=== PATIENT | female | born 1945 | race Caucasian/White ===

== ENCOUNTER → 2021-07-27 12:10 | Outpatient (BNVA) | payer MEDICARE, OTHER, SELFPAY | PROVIDERS: PCP Family Medicine; Visit Provider Family Medicine | DX: E78.2 Mixed hyperlipidemia (principal); I10 Essential (primary) hypertension; E11.9 Type 2 diabetes mellitus without complications; Z79.4 Long term (current) use of insulin | CPT/HCPCS: 80053; 80061; 82043; 83036; 85025 ==

== ENCOUNTER → 2021-10-30 12:02 | Outpatient (BNVA) | payer MEDICARE, OTHER, SELFPAY | PROVIDERS: PCP Family Medicine; Visit Provider Family Medicine | DX: E11.9 Type 2 diabetes mellitus without complications (principal); Z79.4 Long term (current) use of insulin | CPT/HCPCS: 80053; 83036 ==

== ENCOUNTER → 2022-04-06 14:28 | Outpatient (BNVA) | payer MEDICARE, SELFPAY | PROVIDERS: PCP Family Medicine; Visit Provider Registered Nurse Neonatal Intensive Care | DX: U07.1 COVID-19 (principal) | CPT/HCPCS: 87635 ==

== ENCOUNTER → 2022-04-30 11:59 | Outpatient (BNVA) | payer MEDICARE, SELFPAY | PROVIDERS: PCP Family Medicine; Visit Provider Family Medicine | DX: G47.10 Hypersomnia, unspecified (principal); R53.83 Other fatigue; E78.5 Hyperlipidemia, unspecified; I10 Essential (primary) hypertension; E11.9 Type 2 diabetes mellitus without complications; Z79.4 Long term (current) use of insulin | CPT/HCPCS: 80053; 84443 ==

== ENCOUNTER 2022-05-03 06:00 | Outpatient (RCR) | payer MEDICARE, OTHER, SELFPAY | END 2022-05-13 23:59 | disposition home or self-care (01) | LOC: SPT 06:00 | PROVIDERS: PCP Family Medicine; Referring Provider Family Medicine; Visit Provider Family Medicine | DX: M25.511 Pain in right shoulder (principal); M25.512 Pain in left shoulder | CPT/HCPCS: 97110; 97140; 97162; G0283 ==

== ENCOUNTER → 2022-05-04 08:57 | Outpatient (BNVA) | payer MEDICARE, SELFPAY | PROVIDERS: PCP Family Medicine; Visit Provider Family Medicine | DX: E11.9 Type 2 diabetes mellitus without complications (principal); Z79.4 Long term (current) use of insulin | CPT/HCPCS: 83036 ==

== ENCOUNTER 2022-05-14 06:00 | Outpatient (RCR) | payer MEDICARE, OTHER, SELFPAY | END 2022-06-13 23:59 | disposition home or self-care (01) | LOC: SPT 06:00 | PROVIDERS: PCP Family Medicine; Referring Provider Family Medicine; Visit Provider Family Medicine | DX: M25.511 Pain in right shoulder (principal); M25.512 Pain in left shoulder | CPT/HCPCS: 97110; G0283 ==

== ENCOUNTER 2022-07-09 11:47 | Outpatient (CLI) | payer MEDICARE, OTHER, SELFPAY ==
[2022-07-09 12:37] LABS: Basophils % 0.6 %; Eosinophils # 0.1 10^3/uL (0.0-0.8); Hematocrit 29.6 % (37.0-47.0); Hemoglobin 9.3 g/dL (11.5-15.3); Lymphocytes % 30.8 %; Mean Corpuscular HGB Conc 31.4 g/dL (30.0-36.0); Mean Corpuscular Hemoglobin 30.2 pg (28.0-34.0); Mean Corpuscular Volume 96.1 fl (81-99); Mean Platelet Volume 10.7 fL (7.4-10.4); Monocytes # 0.7 10^3/uL (0.2-0.9); Monocytes % 10.5 %; Neutrophils # 3.65 10^3/uL (1.8-7.7); Neutrophils % 55.6 %; Nucleated Red Blood Cells % 0 %; Platelet Count 353 10^3/cmm (130-400); Red Blood Count 3.08 10^6/uL (4.1-5.3); White Blood Count 6.6 10^3/uL (4.0-10.0)
[2022-07-09 13:13] LABS: Alanine Aminotransferase 16 U/L (0-33); Albumin Level 4.1 g/dL (3.5-5.2); Alkaline Phosphatase 38 U/L (35-105); Anion Gap 13.8 (5-19); Aspartate Amino Transferase 22 U/L (0-32); Blood Urea Nitrogen 25 mg/dL (8-23); Calcium 9.6 mg/dL (8.5-10.5); Carbon Dioxide 25 mmol/L (22-29); Chloride 105 mmol/L (98-107); Globulin 2.4 g/dL (1.3-4.6); Glucose 108 mg/dL (65-115); Osmolality Calculated 293 mOsm/kg (285-295); Potassium 4.8 mmol/L (3.5-5.1); Sodium 139 mmol/L (136-145); Thyroid Stimulating Hormone 1.39 uIU/mL (0.27-4.20); Total Bilirubin 0.3 mg/dL (0.15-1.2); Total Protein 6.5 g/dL (6.6-8.7)
== END 2022-07-09 11:48 | disposition home or self-care (01) ==
LOC: LAB 11:52
PROVIDERS: PCP Family Medicine; Visit Provider Family Medicine
DX: R10.9 Unspecified abdominal pain (principal); R53.83 Other fatigue
CPT/HCPCS: 36415; 80053; 82270; 84443; 85025

== ENCOUNTER → 2022-07-23 13:56 | Outpatient (BNVA) | payer MEDICARE, OTHER, SELFPAY | PROVIDERS: PCP Family Medicine; Visit Provider Surgery | DX: R10.13 Epigastric pain (principal); R10.9 Unspecified abdominal pain; K21.9 Gastro-esophageal reflux disease without esophagitis; D50.9 Iron deficiency anemia, unspecified | CPT/HCPCS: 99203 ==

== ENCOUNTER 2022-09-17 05:49 | Day surgery (SDC) | payer MEDICARE, OTHER, SELFPAY ==
[2022-09-13 14:18] VITALS: BMI 22.1
--- NOTE | 2022-09-17 06:11 | P.HP_ITS ---
Same Day Surgery H&P Indication for Procedure/HPI DATE OF PROCEDURE: September 17, 2022 CHIEF COMPLAINT/INDICATIONFOR SURGICAL PROCEDURE: Abdominal pain PREOP DIAGNOSIS: Abdominal pain PLANNED PROCEDURE: Operation Date: 09/17/22 07:30 Proposed Procedures p EGD 57490 colonoscopy 25984,K21.9,D50.9(Not Applicable) - Denis Lorenz MD s Colonoscopy(Not Applicable) - Denis Lorenz MD 07/23/2022 This is a pleasant 76 years old female patient with history of anemia and epigastric pain particularly postprandial.? describes the pain is being crampy and continues to have burping all the time.? Had a colonoscopy about 10 years ago and never had an upper endoscopy.? She feels sleepy and tired.? Nothing seems to make the pain better or worse.? Patient's pain is not being referred.? Latest hemoglobin 9.3 and hematocrit 29.6. Interim history 09/17/2022 Patient comes today for diagnostic EGD and colonoscopy. ROS All systems have been reviewed negative except as for the above or per problem list. Medications/Allergies* Home Medications Medication Instructions Recorded Confirmed Type aspirin 81 mg tablet,delayed 81 mg PO DAILY 06/27/21 09/13/22 History release diphenhydramine HCl 25 mg tablet 50 mg PO .bedtime PRN eyes drops 06/27/21 09/13/22 History (Allergy Relief (diphenhydramine)) make nose run ketoconazole 2 % shampoo 1 applic topical .weekly PRN dry 06/27/21 09/13/22 History patches lancets 28 gauge (FreeStyle 06/27/21 09/13/22 History Lancets) latanoprost 0.005 % eye drops 1 drp ophthalmic (eye) DAILY 06/27/21 09/13/22 History loratadine 10 mg tablet (Allergy 10 mg PO DAILY 06/27/21 09/13/22 History Relief (loratadine)) multivitamin-iron 9 mg-folic acid 1 tab PO DAILY 06/27/21 09/13/22 History 400 mcg-calcium and minerals tablet (High Potency Multivitamin (w-iron)) omega-3 fatty acids-vitamin E 1 cap PO DAILY 06/27/21 09/13/22 History 1,000 mg capsule tumeric 1 cap PO DAILY 07/27/21 09/13/22 History cholecalciferol (vitamin D3) 25 25 mcg PO DAILY 09/13/22 09/13/22 History mcg (1,000 unit) capsule (Vitamin D3) metoprolol tartrate 25 mg tablet 12.5 mg PO QPM 09/13/22 09/13/22 History omeprazole 40 mg capsule,delayed 40 mg PO DAILY 09/13/22 09/13/22 History release simvastatin 80 mg tablet 80 mg PO QPM 09/13/22 09/13/22 History insulin glargine 100 unit/mL (3 30 unit SUBCUT DAILY 09/17/22 09/17/22 History mL) subcutaneous pen (Lantus Solostar U-100 Insulin) Allergies/Adverse Reactions Allergy/AdvReac Type Severity Reaction Status Date / Time Sulfa (Sulfonamide AdvReac Mild yeast Verified 09/17/22 06:22 Antibiotics) infection Pertinent History/Comorbid Conditions* Medical History (Updated 07/10/22 @ 07:32 by Rena Vu DO) Controlled type 2 diabetes mellitus, with long-term current use of insulin Hyperlipidemia Surgical History (Updated 06/27/21 @ 10:59 by Rena Vu DO) No pertinent past surgical history Social History Smoking and tobacco status: former smoker Second hand smoke exposure: No Alcohol intake: current Alcohol intake frequency: holidays/special occasions only Alcohol type: wine Desire information about alcohol rehabilitation?: No Adopted: No Caregiver/support person: No Lives independently: Yes Household members: spouse and children Housing: House Marital status: Number of children: 3 Number of grandchildren: 4 service: No Current occupational status: retired Pets and animals: Yes Pets & animals: dog(s) and fish History of recent travel: No Current gender identity: Female Pertinent Exam Findings alert, oriented x 3, regular rate & rhythm and procedure specific exam findings (Abdominal exam nontender nondistended soft) Recommendations Surgery/Procedure today (EGD and colonoscopy with possible biopsy) Coding Level of Care Code Acute Phlebotomy Lab Assistant for Loren Mata
[2022-09-17 06:17] VITALS: BP 123/85; PULSE 68; RESP 18; TEMP 36.8; O2SAT 97
[2022-09-17] MEDS: sodium chloride 0.9% 1,000 ML 30 ML IV (06:26)
[2022-09-17 06:30] LABS: Glucose Point of Care 196 mg/dL (70-110)
--- NOTE | 2022-09-17 06:55 | ANES.PREANE2 ---
Pre-Anesthetic Assessment Height/Weight: Height 1.6 m Weight 56.699 kg Temp Pulse Resp BP Pulse Ox O2 Del Method 98.3 F 68 18 123/85 97 09/17/22 06:17 09/17/22 06:17 09/17/22 06:17 09/17/22 06:17 09/17/22 06:17 09/17/22 06:17 Preop Diagnosis: Abdominal pain Operation Date: 09/17/22 07:30 Proposed Procedures p EGD 14284 colonoscopy 96082,K21.9,D50.9(Not Applicable) - Denis Lorenz MD s Colonoscopy(Not Applicable) - Denis Lorenz MD Was Beta Louise taken within 24 hours: N/A Was Clonidine taken within 24 hours: N/A Last intake: Intake Last Liquid Date 09/16/22 Last Liquid Time 22:00 Last Solid Date 09/15/22 Last Solid Time 18:00 Social No alcohol and No tobacco Exam alert, oriented x 3, clear to auscultation bilaterally and regular rate & rhythm Airway Submandibular: within normal limits Cervical ROM: within normal limits Mallampati: Class II Dentition: full History/ROS No significant history except as noted and No significant complaints Pulmonary None reported CV/HEM None reported None reported Hepatic None reported GI None reported Metabolic Diabetes Mellitus Musc/skel None reported Neuropsych None reported Anesthetic Plan ASA status: 2 Anesthesia: Anesthesia Evaluation and MAC Risk of > 500 ml blood loss (7ml/kg in children): No Medications/Allergies Home Medications Medication Instructions Recorded Confirmed Last Taken Type aspirin 81 mg tablet,delayed 81 mg PO DAILY 06/27/21 09/13/22 09/14/22 History release diphenhydramine HCl 25 mg tablet 50 mg PO .bedtime PRN eyes drops 06/27/21 09/13/22 09/15/22 History (Allergy Relief (diphenhydramine)) make nose run ketoconazole 2 % shampoo 1 applic topical .weekly PRN dry 06/27/21 09/13/22 09/13/22 History patches lancets 28 gauge (FreeStyle 06/27/21 09/13/22 09/13/22 History Lancets) latanoprost 0.005 % eye drops 1 drp ophthalmic (eye) DAILY 06/27/21 09/13/22 09/16/22 History loratadine 10 mg tablet (Allergy 10 mg PO DAILY 06/27/21 09/13/22 09/15/22 History Relief (loratadine)) multivitamin-iron 9 mg-folic acid 1 tab PO DAILY 06/27/21 09/13/22 09/15/22 History 400 mcg-calcium and minerals tablet (High Potency Multivitamin (w-iron)) omega-3 fatty acids-vitamin E 1 cap PO DAILY 06/27/21 09/13/22 09/15/22 History 1,000 mg capsule tumeric 1 cap PO DAILY 07/27/21 09/13/22 09/15/22 History fenofibrate 160 mg tablet 160 mg PO DAILY #90 tabs 09/18/21 09/13/22 09/15/22 Rx diabetic shoes #1 ea 10/30/21 09/13/22 09/13/22 Rx pen needle, diabetic 32 gauge x #100 ea 01/03/22 09/13/22 09/13/22 Rx 5/32 (TechLITE Pen Needle) trazodone 50 mg tablet 100 mg PO .at bedtime 90 days #180 01/03/22 09/13/22 09/14/22 Rx tabs diclofenac sodium 3 % topical gel 2 g topical QID #100 grams 02/05/22 09/13/22 09/11/22 Rx dapagliflozin 5 mg tablet (Farxiga) 5 mg PO QAM 90 days #90 tabs 05/21/22 09/13/22 09/15/22 Rx blood sugar diagnostic (FreeStyle #300 ea 07/13/22 09/13/22 09/13/22 Rx Lite Strips) cholecalciferol (vitamin D3) 25 25 mcg PO DAILY 09/13/22 09/13/22 09/15/22 History mcg (1,000 unit) capsule (Vitamin D3) metoprolol tartrate 25 mg tablet 12.5 mg PO QPM 09/13/22 09/13/22 09/16/22 History omeprazole 40 mg capsule,delayed 40 mg PO DAILY 09/13/22 09/13/22 09/15/22 History release simvastatin 80 mg tablet 80 mg PO QPM 09/13/22 09/13/22 09/15/22 History insulin glargine 100 unit/mL (3 30 unit SUBCUT DAILY 09/17/22 09/17/22 09/16/22 09:00 History mL) subcutaneous pen (Lantus Solostar U-100 Insulin) Allergies Allergy/AdvReac Type Severity Reaction Status Date / Time Sulfa (Sulfonamide AdvReac Mild yeast Verified 09/17/22 06:22 Antibiotics) infection Current Medications Generic Name Dose Route Start Last Admin Trade Name Freq PRN Reason Stop Dose Admin Sodium Chloride 1,000 mls @ 30 mls/hr 09/17/22 06:15 09/17/22 06:26 Sodium Chloride 0.9% IV 09/18/22 06:14 30 mls/hr .Q24H BRADEN Administration PFSH Anesthesia Medical History Controlled type 2 diabetes mellitus, with long-term current use of insulin Hyperlipidemia Surgical History No pertinent past surgical history Social History Smoking and tobacco status: former smoker Second hand smoke exposure: No Alcohol intake: current Alcohol intake frequency: holidays/special occasions only Alcohol type: wine Desire information about alcohol rehabilitation?: No Adopted: No Caregiver/support person: No Lives independently: Yes Household members: spouse and children Housing: House Marital status: Number of children: 3 Number of grandchildren: 4 service: No Current occupational status: retired Pets and animals: Yes Pets & animals: dog(s) and fish History of recent travel: No Current gender identity: Female Data Anesthesia Cardiac Studies: No Data to Display
[2022-09-17 08:04] VITALS: BP 93/52; PULSE 66; RESP 20; TEMP 36.3; O2SAT 97
[2022-09-17 08:20] VITALS: BP 100/64; PULSE 66; RESP 18; O2SAT 95
--- NOTE | 2022-09-17 15:33 | ANE.PACU2 ---
Inpatient post-anesthesia follow up: Airway intact: Yes Vital signs: Temperature 97.4 F Pulse Rate 66 Respiratory Rate 18 Blood Pressure 100/64 Pulse Oximetry 95 Oxygen Delivery Me thod Room Air Oxygen Flow Rate 3 Fraction of Inspir ed Oxygen Hydration adequate: Yes Nausea and vomiting: No Pain level: 1 Mental status: Baseline
== END 2022-09-17 08:49 | disposition home or self-care (01) ==
PROVIDERS: PCP Family Medicine; Visit Provider Surgery
PROC: 0DJ08ZZ Inspection of Upper Intestinal Tract, Via Natural or Artificial Opening Endoscopic (ICD-10-PCS; CPT 43235; principal; 2022-09-17 07:30)
PROC: 0DJD8ZZ Inspection of Lower Intestinal Tract, Via Natural or Artificial Opening Endoscopic (ICD-10-PCS; CPT 45378; 2022-09-17 07:30)
DX: R10.9 Unspecified abdominal pain (principal); K21.9 Gastro-esophageal reflux disease without esophagitis; D50.9 Iron deficiency anemia, unspecified; K57.30 Diverticulosis of large intestine without perforation or abscess without bleeding; K29.50 Unspecified chronic gastritis without bleeding; B96.81 Helicobacter pylori [H. pylori] as the cause of diseases classified elsewhere; E11.9 Type 2 diabetes mellitus without complications; Z79.82 Long term (current) use of aspirin; Z79.4 Long term (current) use of insulin; E78.5 Hyperlipidemia, unspecified
CPT/HCPCS: 36416; 43239; 45378; 82962; 88305; 88342; J2704; J3490; J7030

== ENCOUNTER → 2022-09-26 10:35 | Outpatient (BNVA) | payer MEDICARE, OTHER, SELFPAY | PROVIDERS: PCP Family Medicine; Visit Provider Surgery | DX: K57.31 Diverticulosis of large intestine without perforation or abscess with bleeding (principal); K29.70 Gastritis, unspecified, without bleeding; A04.8 Other specified bacterial intestinal infections | CPT/HCPCS: 99212 ==

== ENCOUNTER 2022-11-19 08:50 | Outpatient (CLI) | payer MEDICARE, OTHER, SELFPAY ==
[2022-11-19 09:28] LABS: Basophils # 0.1 10^3/uL (0.0-0.1); Basophils % 0.8 %; Eosinophils # 0.1 10^3/uL (0.0-0.8); Eosinophils % 1.7 %; Hematocrit 37.7 % (37.0-47.0); Hemoglobin 12.2 g/dL (11.5-15.3); Lymphocytes # 2.2 10^3/uL (0.8-4.8); Lymphocytes % 35.6 %; Mean Corpuscular HGB Conc 32.4 g/dL (30.0-36.0); Mean Corpuscular Hemoglobin 28.7 pg (28.0-34.0); Mean Corpuscular Volume 88.7 fl (81-99); Monocytes # 0.8 10^3/uL (0.2-0.9); Monocytes % 12.6 %; Neutrophils # 3.08 10^3/uL (1.8-7.7); Nucleated Red Blood Cells % 0 %; Platelet Count 280 10^3/cmm (130-400); Red Blood Count 4.25 10^6/uL (4.1-5.3); Red Cell Distribution Width 14.6 % (12.1-15.1); White Blood Count 6.3 10^3/uL (4.0-10.0)
[2022-11-19 09:48] LABS: Alanine Aminotransferase 14 U/L (0-33); Albumin Level 4.2 g/dL (3.5-5.2); Alkaline Phosphatase 41 U/L (35-105); Anion Gap 13.2 (5-19); Aspartate Amino Transferase 25 U/L (0-32); Blood Urea Nitrogen 19 mg/dL (8-23); Carbon Dioxide 25 mmol/L (22-29); Chloride 102 mmol/L (98-107); Chol HDL Ratio 2.93 mg/dL (0.0-4.40); Cholesterol 126 mg/dL (0-200); Globulin 2.5 g/dL (1.3-4.6); Glucose 82 mg/dL (65-115); HDL Cholesterol 43 mg/dL (60-100); LDL Cholesterol Calculated 55 mg/dL (50-129); LDL HDL Ratio 1.28 RATIO (0.00-3.22); Osmolality Calculated 283 mOsm/kg (285-295); Potassium 4.2 mmol/L (3.5-5.1); Sodium 136 mmol/L (136-145); Total Bilirubin 0.4 mg/dL (0.15-1.2); Total Protein 6.7 g/dL (6.6-8.7); Triglycerides 139 mg/dL (0-150)
[2022-11-19 09:57] LABS: Estmated Average Glucose 154
== END 2022-11-19 08:51 | disposition home or self-care (01) ==
LOC: LAB 08:53
PROVIDERS: PCP Family Medicine; Visit Provider Family Medicine
DX: E11.9 Type 2 diabetes mellitus without complications (principal); Z79.4 Long term (current) use of insulin
CPT/HCPCS: 80053; 80061; 83036; 85025

== ENCOUNTER → 2023-02-22 15:11 | Outpatient (BNVA) | payer MEDICARE, OTHER, SELFPAY | PROVIDERS: PCP Family Medicine; Visit Provider Family Medicine | DX: E11.9 Type 2 diabetes mellitus without complications (principal); Z79.4 Long term (current) use of insulin | CPT/HCPCS: 80053; 83036 ==

== ENCOUNTER 2023-05-17 18:02 | Inpatient (IN) | payer MEDICARE, OTHER, SELFPAY ==
[2023-05-17] VITALS (7 sets, daily range): BP systolic 140–187; BP diastolic 70–107; PULSE 63–69; RESP 16–18; TEMP 36.5–36.6; O2SAT 95–99; BMI 21.2
--- NOTE | 2023-05-17 18:33 | ED_ITS ---
HPI - Dizziness General: Chief Complaint: Dizziness Stated Complaint: Dizzy Time Seen by Provider: 05/17/23 18:33 History of Present Illness: HPI Narrative: Ms. Yi is a 77-year-old lady with history of diabetes presenting to the emergency department for dizziness. She woke up feeling okay this morning but as soon as she went to get out of bed had severe onset of spinning sensation dizziness. This has recurred throughout the day every time that she goes and tries to stand up. Laying down even moving her head around she cannot reproduce symptoms. She has had nausea and vomiting. Denies other associated symptoms or neurologic symptoms. No history of similar in the past. She tried meclizine without significant relief. No other specific changes in health, exacerbating, or alleviating factors identified. Onset (ago): hour(s) Timing: awoke with symptoms and constant Severity: severe Exacerbating factors: movement/ambulation and change in body position Review of Systems General: Reports: 10 or more systems reviewed and unremarkable except in HPI a nd below PFSH ED PFSH: Medical History (Updated 05/19/23 @ 11:27 by Maximus Mcconnell DO) Bilateral shoulder pain Controlled type 2 diabetes mellitus, with long-term current use of insulin Diverticulosis large intestine w/o perforation or abscess w/bleeding Encounter to establish care Fatigue Gastritis H. pylori infection Hyperlipidemia Hypersomnolence Strain of left trapezius muscle Surgical History (Updated 05/17/23 @ 23:31 by Sherwin Smith MD) Hx of colonoscopy 09/17/22 Social History Smoking and tobacco status: former smoker Second hand smoke exposure: No Alcohol intake: current Alcohol intake frequency: holidays/special occasions only Alcohol type: wine Desire information about alcohol rehabilitation?: No Substance/Drug Use: never Adopted: No Caregiver/support person: No Lives independently: Yes Household members: spouse and children Housing: House Marital status: Number of children: 3 Number of grandchildren: 4 service: No Current occupational status: retired Pets and animals: Yes Pets & animals: dog(s) and fish Current gender identity: Female Physical Exam Const: COMMON NORMALS: patient oriented x3 and alert GENERAL APPEARANCE: cooperative and well developed HENMT: COMMON NORMALS: normocephalic and atraumatic HEAD & SCALP: normocephalic and atraumatic THROAT: posterior oropharynx normal Eye: COMMON NORMALS: conjunctivae normal CONJUNCTIVA: Yes conjunctivae normal SCLERA: sclerae normal Neck/C-Spine: COMMON NORMALS: supple GENERAL: Yes trachea midline Resp: COMMON NORMALS: clear to auscultation bilaterally EFFORT & INSPECTION: Yes able to speak in complete sentences AUSCULTATION: clear to auscultation bilaterally Cardio: COMMON NORMALS: regular rate and regular rhythm RATE: regular rate RHYTHM: regular rhythm GI: COMMON NORMALS: Soft to palpation PALPATION: Yes Soft to palpation and No Tenderness to palpation present (GI) Extremity: GENERAL: Yes normal exam except as noted and No edema Neuro: COMMON NORMALS: patient oriented x3, CN's II-XII intact bilaterally, moves all extremities, no focal motor deficits and no sensory deficits noted SENSORIUM/ORIENTATION: Yes alert and No Orientation impaired Psych: COMMON NORMALS: mental status grossly normal and Normal thought process present THOUGHT PROCESS: Normal thought process present Course Vital Signs: Vital signs: Vital Signs Temperature 97.7 F 05/19/23 12:46 Pulse Rate 93 05/19/23 12:46 Respiratory Rate 18 05/19/23 12:46 Blood Pressure 141/75 05/19/23 12:46 Pulse Oximetry 96 05/19/23 12:46 Oxygen Delivery Me thod Room Air 05/19/23 11:17 MDM - Dizziness Medical Decision Making 77-year-old lady presenting with profound dizziness mostly with positioning and attempted ambulation which is unsteady. Exam as above. Perhaps minimal right single beat nystagmus though not convincing as a peripheral cause of vertiginous type symptoms. Additionally when not sitting up the patient is able to move head without exacerbating symptoms. No meningismus. Patient is nontoxic. EKG demonstrates sinus rhythm with right bundle branch block. No STEMI. Labs with no acute arrangement to explain symptoms. Urinalysis pending. CT with no hemorrhage, mass, large vessel occlusion. I gave the patient both treatment for vertiginous symptoms with fluids and meclizine as well as low-dose for treatment of possible atypical migraine. I attempted Tank maneuver without improvement. Patient remains moderately symptomatic with sitting and is unable to ambulate. The results of ED evaluation were discussed with the patient including plan for admission due to requirement for level of care not available if discharged to prevent significant worsening/deterioration. Patient agreeable with plan. Discussed with hospitalist service who was agreeable to admit patient. Medical Records I reviewed the patient's medical records. Lab Data I reviewed the patient's lab results. 05/17/23 19:00 05/18/23 04:12 Radiology Impressions Head/Neck CTA 05/17/23 18:47 IMPRESSION: No large vessel stenosis or occlusion. IMPRESSION: No stenosis or occlusion. REFERENCES: NASCET CRITERIA. The degree of stenosis in the cervical segment of the internal carotid artery is based on NASCET criteria. Normal is no stenosis. Mild is less than 50% stenosis. Moderate is 50-69% stenosis. Severe is 70% to 99% stenosis. Total occlusion is no detectable patent lumen. Head MRI 05/18/23 11:07 IMPRESSION: No acute findings. Laboratory Results WBC 6.4 10^3/uL (4.0-10.0) 05/17/23 19:00 RBC 4.33 10^6/uL (4.1-5.3) 05/17/23 19:00 Hgb 12.8 g/dL (11.5-15.3) 05/17/23 19:00 Hct 39.3 % (37.0-47.0) 05/17/23 19:00 MCV 90.8 fl (81-99) 05/17/23 19:00 MCH 29.6 pg (28.0-34.0) 05/17/23 19:00 MCHC 32.6 g/dL (30.0-36.0) 05/17/23 19:00 RDW 12.2 % (12.1-15.1) 05/17/23 19:00 Plt Count 301 10^3/cmm (130-400) 05/17/23 19:00 MPV 10.1 fL (7.4-10.4) 05/17/23 19:00 Neut % (Auto) 55.5 % 05/17/23 19:00 Lymph % (Auto) 28.8 % 05/17/23 19:00 [place] % (Auto) 12.7 % 05/17/23 19:00 Eos % (Auto) 2.3 % 05/17/23 19:00 Baso % (Auto) 0.5 % 05/17/23 19:00 Neut # (Auto) 3.55 10^3/uL (1.8-7.7) 05/17/23 19:00 Lymph # (Auto) 1.8 10^3/uL (0.8-4.8) 05/17/23 19:00 [place] # (Auto) 0.8 10^3/uL (0.2-0.9) 05/17/23 19:00 Eos # (Auto) 0.2 10^3/uL (0.0-0.8) 05/17/23 19:00 Baso # (Auto) 0.0 10^3/uL (0.0-0.1) 05/17/23 19:00 Nucleated RBC % (auto) 0 % 05/17/23 19:00 Nucleated RBCs # 0.0 /100WBC 05/17/23 19:00 Sodium 140 mmol/L (136-145) 05/18/23 04:12 Potassium 4.2 mmol/L (3.5-5.1) 05/18/23 04:12 Chloride 107 mmol/L (98-107) 05/18/23 04:12 Carbon Dioxide 23 mmol/L (22-29) 05/18/23 04:12 Anion Gap 14.2 (5-19) 05/18/23 04:12 BUN 16 mg/dL (8-23) 05/18/23 04:12 Creatinine 0.7 mg/dL (0.5-0.9) 05/18/23 04:12 GFR Calculation Not Reportable 05/18/23 04:12 Glucose 152 mg/dL (65-115) H 05/18/23 04:12 Calculated Osmolality 289 mOsm/kg (285-295) 05/17/23 19:00 Calcium 9.0 mg/dL (8.5-10.5) 05/18/23 04:12 Phosphorus 2.9 mg/dL (2.5-4.5) 05/18/23 04:12 Magnesium 1.9 mg/dL (1.7-2.3) 05/17/23 19:00 Total Bilirubin 0.3 mg/dL (0.15-1.2) 05/17/23 19:00 AST 29 U/L (0-32) 05/17/23 19:00 ALT 15 U/L (0-33) 05/17/23 19:00 Alkaline Phosphatase 41 U/L (35-105) 05/17/23 19:00 Total Protein 7.1 g/dL (6.6-8.7) 05/17/23 19:00 Albumin 3.9 g/dL (3.5-5.2) 05/18/23 04:12 Globulin 2.7 g/dL (1.3-4.6) 05/17/23 19:00 TSH 1.07 uIU/mL (0.27-4.20) 05/17/23 19:00 Urine Color Yellow (Yellow) 05/17/23 19:49 Urine Appearance Clear (CLEAR) 05/17/23 19:49 Urine pH 8 (5-7) H 05/17/23 19:49 Ur Specific [place] 1.005 (1.005-1.030) 05/17/23 19:49 Urine Protein Neg (Negative) 05/17/23 19:49 Urine Glucose (UA) Norm (Normal) 05/17/23 19:49 Urine Ketones Negative (Negative) 05/17/23 19:49 Urine Blood Neg (Negative) 05/17/23 19:49 Urine Nitrate Negative (Negative) 05/17/23 19:49 Urine Bilirubin Neg (Negative) 05/17/23 19:49 Prot Sulfosalicylic Acd Negative (Negative) 05/17/23 19:49 Urine Urobilinogen Norm mg/dL (Negative) 05/17/23 19:49 Ur Leukocyte Esterase 1+ (Negative) H 05/17/23 19:49 Urine RBC 0-4 /hpf (0-2) H 05/17/23 19:49 Urine WBC 10-15 /hpf (0-5) H 05/17/23 19:49 Ur Squamous Epith Cells 0-4 /hpf (0-5) H 05/17/23 19:49 Amorphous Sediment Not Reportable 05/17/23 19:49 Urine Bacteria Trace /hpf (NONE) 05/17/23 19:49 Discharge Plan Discharge Patient Disposition: Placed in Observation Admit Provider: Sherwin Smith Clinical Impression: Dizziness Discharge Diet: Usual diet Discharge Activity: Increase activity as tolerated Coding Level of Care Code ED J2Ee Programmer for Chg Fwluis alberto
--- NOTE | 2023-05-17 18:47 | CTR_ITS ---
PROCEDURE INFORMATION: Exam: CTA Head With Contrast, Arteriography Exam date and time: 05/17/2023 7:20 PM Age: 77 years old Clinical indication: Dizziness and giddiness; Patient HX: Persistent dizziness with n/v starting this morning. TECHNIQUE: Imaging protocol: Computed tomographic angiography of the head with contrast. Exam focused on the arteries. 3D rendering (Not supervised by radiologist): MIP and/or 3D reconstructed images were created by the technologist. Radiation optimization: All CT scans at this facility use at least one of these dose optimization techniques: automated exposure control; mA and/or kV adjustment per patient size (includes targeted exams where dose is matched to clinical indication); or iterative reconstruction. Contrast material: OMNI 350; Contrast volume: 100 ml; Contrast route: INTRAVENOUS (IV); REPORTING DATA: Count of CT and Cardiac NM exams in prior 12 months: This patient has received 0 known CTs and 0 known cardiac nuclear medicine studies in the 12 months prior to the current study. COMPARISON: No relevant prior studies available. RADIATION DOSE METRICS: Total DLP (mGy-cm): 898.36 FINDINGS: ANTERIOR CIRCULATION: Right internal carotid artery: Intracranial segment is patent with no significant stenosis. No aneurysm. Right middle cerebral artery: No occlusion or significant stenosis. No aneurysm. Right anterior cerebral artery: No occlusion or significant stenosis. No aneurysm. Left internal carotid artery: Intracranial segment is patent with no significant stenosis. No aneurysm. Left middle cerebral artery: No occlusion or significant stenosis. No aneurysm. Left anterior cerebral artery: No occlusion or significant stenosis. No aneurysm. POSTERIOR CIRCULATION: Right vertebral artery: No occlusion or significant stenosis. No aneurysm. Left vertebral artery: No occlusion or significant stenosis. No aneurysm. Basilar artery: No occlusion or significant stenosis. No aneurysm. Right posterior cerebral artery: No occlusion or significant stenosis. No aneurysm. Left posterior cerebral artery: No occlusion or significant stenosis. No aneurysm. Brain: No hemorrhage. No edema. Mild diffuse cerebral atrophy. No significant white matter disease. No mass effect. Cerebral ventricles: No ventriculomegaly. Bones/joints: Unremarkable. No acute fracture. Soft tissues: Unremarkable. PROCEDURE INFORMATION: Exam: CTA Neck With Contrast Exam date and time: 05/17/2023 7:20 PM Age: 77 years old Clinical indication: Dizziness and giddiness; Patient HX: Persistent dizziness with n/v starting this morning. TECHNIQUE: Imaging protocol: Computed tomographic angiography of the neck with contrast. 3D rendering (Not supervised by radiologist): MIP and/or 3D reconstructed images were created by the technologist. Radiation optimization: All CT scans at this facility use at least one of these dose optimization techniques: automated exposure control; mA and/or kV adjustment per patient size (includes targeted exams where dose is matched to clinical indication); or iterative reconstruction. Contrast material: OMNI 350; Contrast volume: 100 ml; Contrast route: INTRAVENOUS (IV); REPORTING DATA: Count of CT and Cardiac NM exams in prior 12 months: This patient has received 0 known CTs and 0 known cardiac nuclear medicine studies in the 12 months prior to the current study. COMPARISON: No relevant prior studies available. RADIATION DOSE METRICS: Total DLP (mGy-cm): 898.36 FINDINGS: Right common carotid artery: No stenosis. No dissection or occlusion. Right internal carotid artery: No stenosis of the extracranial segment. No dissection or occlusion. Right external carotid artery: No occlusion or stenosis of the origin. Left common carotid artery: No stenosis. No dissection or occlusion. Left internal carotid artery: No stenosis of the extracranial segment. No dissection or occlusion. Left external carotid artery: No occlusion or stenosis of the origin. Right vertebral artery: Hypoplastic right vertebral artery. Distal anastomosis with a branch of the external carotid artery. Left vertebral artery: No stenosis. No dissection or occlusion. Soft tissues: Normal. No significant soft tissue swelling. Bones/joints: No acute fracture. CT/CT angio headneck* [id number] IMPRESSION: No large vessel stenosis or occlusion. IMPRESSION: No stenosis or occlusion. REFERENCES: NASCET CRITERIA. The degree of stenosis in the cervical segment of the internal carotid artery is based on NASCET criteria. Normal is no stenosis. Mild is less than 50% stenosis. Moderate is 50-69% stenosis. Severe is 70% to 99% stenosis. Total occlusion is no detectable patent lumen.
--- NOTE | 2023-05-17 18:48 | ECG_ITS ---
[facility] Test Date: 2023-05-17 Pat Name: Ofelia Yi Department: Room: 277 Gender: Female Career Services Coordinator: : 1945 Requested By: Ozzy Gilmore Order Number: [id number] Rigoberto MD: Xochilt Rojas M.D. Measurements Intervals Dixon Rate: 66 P: 61 SC: 139 QRS: 167 QRSD: 131 T: 39 QT: 455 QTc: 477 Interpretive Statements SINUS RHYTHM RIGHT BUNDLE BRANCH BLOCK [120+ ms QRS DURATION, UPRIGHT V1, 40+ ms S IN I/aVL/V4/V5/V6] LEFT POSTERIOR FASCICULAR BLOCK [QRS AXIS > 109, INFERIOR Q] No previous ECG available for comparison Electronically Signed On 05-17-2023 22:54:55 CDT by Xochilt Rojas M.D. [email or web address]
[2023-05-17 19:11] LABS: Basophils % 0.5 %; Eosinophils # 0.2 10^3/uL (0.0-0.8); Eosinophils % 2.3 %; Hematocrit 39.3 % (37.0-47.0); Hemoglobin 12.8 g/dL (11.5-15.3); Lymphocytes # 1.8 10^3/uL (0.8-4.8); Lymphocytes % 28.8 %; Mean Corpuscular HGB Conc 32.6 g/dL (30.0-36.0); Mean Corpuscular Hemoglobin 29.6 pg (28.0-34.0); Mean Corpuscular Volume 90.8 fl (81-99); Mean Platelet Volume 10.1 fL (7.4-10.4); Monocytes # 0.8 10^3/uL (0.2-0.9); Monocytes % 12.7 %; Neutrophils # 3.55 10^3/uL (1.8-7.7); Neutrophils % 55.5 %; Nucleated Red Blood Cells % 0 %; Platelet Count 301 10^3/cmm (130-400); Red Blood Count 4.33 10^6/uL (4.1-5.3); Red Cell Distribution Width 12.2 % (12.1-15.1); White Blood Count 6.4 10^3/uL (4.0-10.0)
[2023-05-17] MEDS: iohexol 350 mg/mL 500 mL Btl (per mL) IV (19:29)
[2023-05-17 19:42] LABS: Albumin Level 4.4 g/dL (3.5-5.2); Alkaline Phosphatase 41 U/L (35-105); Blood Urea Nitrogen 18 mg/dL (8-23); Calcium 9.8 mg/dL (8.5-10.5); Carbon Dioxide 25 mmol/L (22-29); Chloride 101 mmol/L (98-107); Globulin 2.7 g/dL (1.3-4.6); Glucose 113 mg/dL (65-115); Magnesium 1.9 mg/dL (1.7-2.3); Osmolality Calculated 289 mOsm/kg (285-295); Sodium 138 mmol/L (136-145); Thyroid Stimulating Hormone 1.07 uIU/mL (0.27-4.20); Total Bilirubin 0.3 mg/dL (0.15-1.2); Total Protein 7.1 g/dL (6.6-8.7)
[2023-05-17 20:00] LABS: Alanine Aminotransferase 15 U/L (0-33); Anion Gap 17.2 (5-19); Aspartate Amino Transferase 29 U/L (0-32); Potassium 5.2 mmol/L (3.5-5.1)
[2023-05-17] MEDS: meclizine 25 mg tablet PO (20:07)
[2023-05-17] MEDS: sodium chloride 0.9% 1,000 ML 999 ML IV (20:07)
[2023-05-17 20:28] LABS: Add Urine Microscopic? YES; Bilirubin Urine Neg (Negative); Blood Urine Neg (Negative); Glucose Urine UA Norm (Normal); Ketones Urine Negative (Negative); Leukocyte Esterase Urine 1+ (Negative); Nitrate Urine Negative (Negative); Protein Urine Neg (Negative); Specific Gravity, Urine 1.005 (1.005-1.030); Urine Appearance Clear (CLEAR); Urine Color Yellow (Yellow); Urobilinogen Urine Norm (Negative); pH Urine 8 (5-7)
[2023-05-17 20:29] LABS: Sulfosalicylic Acid Urine Negative (Negative)
[2023-05-17 20:30] LABS: Bacteria Urine TRACE /hpf; RBC Urine 0-4 /hpf (0-2); Squamous Epithelial Cell Urine 0-4 /hpf (0-5)
[2023-05-17] MEDS: scopolamine 1.5 Patch 1 PATCH TRANSDERMA (20:53)
--- NOTE | 2023-05-17 22:07 | PM.HP ---
Providers/Chief Complaint Admitting Physician: Sherwin Smith MD Primary Care Provider: Rena Vu DO Chief Complaint: Dizzy History of Present Illness Ofelia Yi is a 77 year old female with a past medical history significant for type 2 diabetes mellitus, insomnia, hyperlipidemia, and GERD who presents to the emergency department with severe vertigo. Patient reports symptoms started this morning around 9 AM. Describes symptoms as dizziness. Reports any movement makes symptoms worse. Currently, laying still in bed symptoms are tolerable. Endorses associated symptoms of nausea and vomiting. Reports appetite is currently okay. In the ED, she received Reglan and meclizine without significant improvement. She denies fevers or chills. She does endorse a prior history of vertigo. She reports a remote history of vertigo related to her salt intake. She states that she improved her salt intake and symptoms improved. She states that there are still days when she can tell she had too much salt she is getting some inner ear symptoms from it. Otherwise, denies other new complaints. Review of Systems Narrative: A complete review of systems was obtained and is negative except as stated in HPI. Medications/Allergies Home Medications Medication Instructions Recorded Confirmed Last Taken Type aspirin 81 mg tablet,delayed 81 mg PO DAILY 06/27/21 03/06/23 09/14/22 History release diphenhydramine HCl 25 mg tablet 50 mg PO .bedtime PRN eyes drops 06/27/21 03/06/23 09/15/22 History (Allergy Relief (diphenhydramine)) make nose run ketoconazole 2 % shampoo 1 applic topical .weekly PRN dry 06/27/21 03/06/23 09/13/22 History patches lancets 28 gauge (FreeStyle 06/27/21 03/06/23 09/13/22 History Lancets) latanoprost 0.005 % eye drops 1 drp ophthalmic (eye) DAILY 06/27/21 03/06/23 09/16/22 History loratadine 10 mg tablet (Allergy 10 mg PO DAILY 06/27/21 03/06/23 09/15/22 History Relief (loratadine)) multivitamin-iron 9 mg-folic acid 1 tab PO DAILY 06/27/21 03/06/23 09/15/22 History 400 mcg-calcium and minerals tablet (High Potency Multivitamin (w-iron)) omega-3 fatty acids-vitamin E 1 cap PO DAILY 06/27/21 03/06/23 09/15/22 History 1,000 mg capsule tumeric 1 cap PO DAILY 07/27/21 03/06/23 09/15/22 History blood sugar diagnostic (FreeStyle #300 ea 07/13/22 03/06/23 09/13/22 Rx Lite Strips) cholecalciferol (vitamin D3) 25 25 mcg PO DAILY 09/13/22 03/06/23 09/15/22 History mcg (1,000 unit) capsule (Vitamin D3) pen needle, diabetic 32 gauge x #100 ea 10/22/22 03/06/23 Unknown Rx (TechLITE Pen Needle) fenofibrate 160 mg tablet See Rx Instructions .Route 11/22/22 03/06/23 Unknown Rx .COMPLEX #90 tabs omeprazole 40 mg capsule,delayed See Rx Instructions .Route 11/22/22 03/06/23 Unknown Rx release .COMPLEX #90 caps simvastatin 80 mg tablet 80 mg PO QPM #90 tabs 11/22/22 03/06/23 Unknown Rx metoprolol tartrate 25 mg tablet See Rx Instructions .Route 02/04/23 03/06/23 Unknown Rx .COMPLEX #135 tabs dapagliflozin 5 mg tablet (Farxiga) See Rx Instructions .Route 02/22/23 03/06/23 Unknown Rx .COMPLEX #90 tabs diclofenac sodium 3 % topical gel 2 g topical QID #100 grams 02/22/23 03/06/23 Unknown Rx insulin glargine 100 unit/mL (3 27 unit (0.27 mL) SUBCUT DAILY 90 02/22/23 03/06/23 Unknown Rx mL) subcutaneous pen (Lantus days #30 mL Solostar U-100 Insulin) diabetic shoes #1 ea 02/26/23 03/06/23 Unknown Rx albuterol sulfate 90 mcg/actuation 2 puff inhalation Q4H PRN 03/06/23 03/06/23 Unknown Rx aerosol inhaler (Ventolin HFA) shortness of breath or wheezing #8.5 grams doxycycline hyclate 100 mg tablet 100 mg PO BID 7 days #14 tabs 03/06/23 03/06/23 Unknown Rx trazodone 50 mg tablet See Rx Instructions .Route 04/01/23 Unknown Rx .COMPLEX #180 tabs Allergies Allergy/AdvReac Type Severity Reaction Status Date / Time Sulfa (Sulfonamide AdvReac Mild yeast Verified 03/06/23 13:50 Antibiotics) infection PFSH Acute PFSH: Medical History (Updated 05/17/23 @ 23:31 by Sherwin Smith MD) Bilateral shoulder pain Controlled type 2 diabetes mellitus, with long-term current use of insulin Diverticulosis large intestine w/o perforation or abscess w/bleeding Encounter to establish care Fatigue Gastritis H. pylori infection Hyperlipidemia Hypersomnolence Strain of left trapezius muscle Surgical History (Updated 05/17/23 @ 23:31 by Sherwin Smith MD) Hx of colonoscopy 09/17/22 Social History Smoking and tobacco status: former smoker Second hand smoke exposure: No Alcohol intake: current Alcohol intake frequency: holidays/special occasions only Alcohol type: wine Desire information about alcohol rehabilitation?: No Substance/Drug Use: never Adopted: No Caregiver/support person: No Lives independently: Yes Household members: spouse and children Housing: House Marital status: Number of children: 3 Number of grandchildren: 4 service: No Current occupational status: retired Pets and animals: Yes Pets & animals: dog(s) and fish Current gender identity: Female Vitals/I&O/Wt Last Vital Signs Temp 97.7 F 05/17/23 18:09 Pulse 68 05/17/23 21:00 Resp 18 05/17/23 21:00 BP 144/77 05/17/23 21:00 Pulse Ox 97 05/17/23 21:00 O2 Del Method Room Air 05/17/23 21:00 Weight last 48 hrs Weight 54.431 kg Physical Exam Narrative: General: Patient is awake. Very pleasant. Appears fatigued. Head: Normocephalic. Atraumatic. EOM intact. Neck: No JVD. Cardiovascular: RRR. No gallops. No murmurs. No peripheral edema. Lungs: Clear to auscultation, no use of accessory muscles, no crackles or wheezes. Skin: No jaundice. No rashes. Abdomen: Normal bowel sounds, abdomen soft and nontender. Extremities: No cyanosis or clubbing. Musculoskeletal: 5 no swollen or erythematous joints. Neurological: Moves all 4 extremities. No myoclonus. 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 Coding Level of Care Code Acute Code for Chg Fwd Diagnoses Dizziness R42 Controlled type 2 diabetes mellitus, with long-term current use of insulin E11.9; Z79.4 Diabetes mellitus complication status: without complication Hyperlipidemia E78.2 Hyperlipidemia type: mixed hyperlipidemia GERD (gastroesophageal reflux disease) K21.9 Insomnia G47.09 Insomnia type: other insomnia
[2023-05-18] VITALS (8 sets, daily range): BP systolic 116–164; BP diastolic 69–96; PULSE 59–73; RESP 14–18; TEMP 36.4–36.7; O2SAT 91–99
[2023-05-18] MEDS: sodium chloride 0.9% 1,000 ML 50 ML IV ×2 (00:12→21:22)
[2023-05-18] MEDS: diazePAM 2 mg Tablet PO (00:27)
[2023-05-18 04:36] LABS: Albumin Level 3.9 g/dL (3.5-5.2); Blood Urea Nitrogen 16 mg/dL (8-23); Carbon Dioxide 23 mmol/L (22-29); Chloride 107 mmol/L (98-107); Glucose 152 mg/dL (65-115); Phosphorus 2.9 mg/dL (2.5-4.5); Sodium 140 mmol/L (136-145)
[2023-05-18 04:41] LABS: Anion Gap 14.2 (5-19); Potassium 4.2 mmol/L (3.5-5.1)
[2023-05-18] MEDS: aspirin 81 mg EC Tablet PO (09:05)
[2023-05-18] MEDS: pantoprazole DR 40 mg Tablet PO (09:06)
[2023-05-18] MEDS: loratadine 10 mg Tablet PO (09:06)
[2023-05-18] MEDS: insulin glargine 100 units/1 mL 27 UNIT SUBCUT (10:05)
--- NOTE | 2023-05-18 11:07 | MRR_ITS ---
PROCEDURE INFORMATION: Exam: MR Head Without Contrast Exam date and time: 05/18/2023 1:17 PM Age: 77 years old Clinical indication: Dizziness; Additional info: Vertigo TECHNIQUE: Imaging protocol: Magnetic resonance imaging of the head without contrast. COMPARISON: CT angio headneck* [id number] 05/17/2023 7:20 PM FINDINGS: Brain: Mild cerebral atrophy. No acute infarct. No hemorrhage. No significant white matter disease. No edema. Cerebral ventricles: Ventricles are in proportion to the degree of atrophy. Bones/joints: Unremarkable. Paranasal sinuses: Normal as visualized. No acute sinusitis. Mastoid air cells: Normal as visualized. No mastoid effusion. Orbital cavities: Unremarkable. Soft tissues: Unremarkable. MR/MR head wo con* [id number] IMPRESSION: No acute findings.
--- NOTE | 2023-05-18 14:36 | PM.PN ---
Subjective Subjective: Reports having continued dizziness when sitting up or moving in bed. Denies chest pain, shortness of breath. Says that medications are helping to manage the symptoms slightly. Was able to eat and drink this morning. Says that vertigo doesn't improve when onsets and does not move. Vitals/I&O/Wt Last Vital Signs Temp 98.0 F 05/18/23 11:04 Pulse 62 05/18/23 11:04 Resp 18 05/18/23 11:04 BP 150/85 05/18/23 11:04 Pulse Ox 96 05/18/23 11:04 O2 Del Method Room Air 05/18/23 11:04 05/17/23 05/18/23 05/18/23 22:59 06:59 14:59 Intake Total 552 / 552 500 / 1052 420 / 420 Balance 552 / 552 500 / 1052 420 / 420 Weight last 48 hrs Weight 115 lb 5 oz Weight 120 lb Physical Exam Narrative: General: Cooperative patient in no apparent distress. Well developed. HEENT: Normocephalic, Atraumatic. External ears normal. Nasal passages patent without drainage. MMM. Heart: RRR. Resp: LCTA. No respiratory distress, no use of accessory muscles. Abd: Soft, non-tender. Non-distended. Extremities: No edema. Skin: No rash or lesions on exposed areas. Neuro: No focal motor or sensory loss. Nystagmus on [place]el[place]-Hallpike maneuver. Data 05/17/23 19:00 05/18/23 04:12 A&P Assessment and plan (1) Dizziness: Associated with vertigo, nausea, and vomiting Continue IVF's. Antiemetics as needed Valium as needed Order for head MRI to evaluate for posterior circulation stroke as symptoms have persisted and do not resolve with rest. If MR of head is negative, will consider discharge or physical therapy referral for Tank maneuvers. 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 Coding Level of Care Code Acute Code for Chg Fwd Moderate MDM includes number and complexity of problems actively addressed during encounter, amount and/or complexity of data reviewed/ordered and described risk of complication, morbidity or mortality of management as documented Diagnoses Dizziness R42 Controlled type 2 diabetes mellitus, with long-term current use of insulin E11.9; Z79.4 Diabetes mellitus complication status: without complication Hyperlipidemia E78.2 Hyperlipidemia type: mixed hyperlipidemia GERD (gastroesophageal reflux disease) K21.9 Insomnia G47.09 Insomnia type: other insomnia
[2023-05-18] MEDS: atorvastatin 40 mg Tablet PO (17:36)
[2023-05-18] MEDS: metoprolol tartrate 25 mg Tablet 12.5 MG PO (17:36)
[2023-05-18] MEDS: trazodone 50 mg Tablet 100 MG PO (21:22)
[2023-05-18] MEDS: latanoprost 0.005% Op Soln 2.5 mL Btl 1 DROP OPHTHALMIC (21:44)
[2023-05-19] VITALS: BP 109/69; PULSE 57; RESP 16; TEMP 36.5; O2SAT 97
[2023-05-19 03:49] VITALS: BP 110/72; PULSE 59; RESP 16; TEMP 36.9; O2SAT 97
[2023-05-19 07:32] VITALS: PULSE 77; RESP 16; O2SAT 95
[2023-05-19 07:37] VITALS: BP 127/76; PULSE 64; RESP 16; TEMP 36.6; O2SAT 94
[2023-05-19] MEDS: pantoprazole DR 40 mg Tablet PO (08:24)
[2023-05-19] MEDS: aspirin 81 mg EC Tablet PO (08:24)
[2023-05-19] MEDS: insulin glargine 100 units/1 mL 27 UNIT SUBCUT (08:25)
[2023-05-19] MEDS: loratadine 10 mg Tablet PO (08:29)
--- NOTE | 2023-05-19 09:34 | PC.NURSE ---
pt requested daughter Rachel Yi be added to contact list [phone]. PHI form signed and in chart.
[2023-05-19 11:17] VITALS: BP 141/75; PULSE 93; RESP 18; TEMP 36.5; O2SAT 96
[2023-05-19 12:46] VITALS: BP 141/75; PULSE 93; RESP 18; TEMP 36.5; O2SAT 96
--- NOTE | 2023-05-19 14:14 | PM.DCS ---
Discharge Providers Date of Admission: 05/18/23 16:01 Date of Discharge: May 19, 2023 Attending Provider at Admission: Sherwin Smith MD Attending Provider at Discharge: Maximus Mcconnell DO Primary Care Provider: Rena Vu DO Diagnoses at Discharge Discharge Diagnosis (1) Dizziness: Status: Acute (2) Controlled type 2 diabetes mellitus, with long-term current use of insulin: Status: Chronic Qualifiers: Diabetes mellitus complication status: without complication Qualified Code(s): E11.9 - Type 2 diabetes mellitus without complications; Z79.4 - longterm (current) use of insulin (3) Hyperlipidemia: Status: Chronic Qualifiers: Hyperlipidemia type: mixed hyperlipidemia Qualified Code(s): E78.2 - Mixed hyperlipidemia (4) GERD (gastroesophageal reflux disease): Status: Acute (5) Insomnia: Status: Acute Qualifiers: Insomnia type: other insomnia Qualified Code(s): G47.09 - Other insomnia Reason for Visit Reason for Visit: Dizzy Hospital Course Hospital Course Ofelia Yi is a 77 year old female with a past medical history significant for type 2 diabetes mellitus, insomnia, hyperlipidemia, and GERD who presents to the emergency department with severe vertigo.? Patient states that her symptoms started while she was moving around in bed. Reports having lightheadedness, but also symptoms of vertigo. She does have a prior history of vertigo, but says that it was related to her salt intake and improved when she changed her diet. States that she has had a few additional episodes over the last few years, but she has not had persistent symptoms such as she is currently experiencing. In the ER, Her labs were drawn and were unremarkable. 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 She was admitted and her symptoms were treated with antiemetics. Patient did demonstrate a positive [place]-Hallpike maneuver. . MRI of the head was performed to rule out TIA/CVA of the posterior circulation. This was negative. Patient's symptoms did improve to the point that she was able to sit up and transfer without significant dizziness. Was recommended that she begin Tank maneuvers at home, and a referral to physical therapy was placed. She was discharged in stable and improved condition. Physical Exam Narrative: General: Cooperative patient in no apparent distress. Well developed. HEENT: Normocephalic, Atraumatic. External ears normal. Nasal passages patent without drainage. MMM. Heart: RRR. Resp: LCTA. No respiratory distress, no use of accessory muscles. Abd: Soft, non-tender. Non-distended. Extremities: No edema. Skin: No rash or lesions on exposed areas. Neuro: No focal motor or sensory loss. Discharge Data Studies Completed and Pending Completed Studies During Hospitalization Category Date Time Status CT angio headneck* [id number] Stat Cat Scan 05/17/23 18:47 Completed MR head wo con* [id number] Routine MRI 05/18/23 11:07 Completed Radiology Impressions Head/Neck CTA 05/17/23 18:47 IMPRESSION: No large vessel stenosis or occlusion. IMPRESSION: No stenosis or occlusion. REFERENCES: NASCET CRITERIA. The degree of stenosis in the cervical segment of the internal carotid artery is based on NASCET criteria. Normal is no stenosis. Mild is less than 50% stenosis. Moderate is 50-69% stenosis. Severe is 70% to 99% stenosis. Total occlusion is no detectable patent lumen. Head MRI 05/18/23 11:07 IMPRESSION: No acute findings. Laboratory Results WBC 6.4 10^3/uL (4.0-10.0) 05/17/23 19:00 RBC 4.33 10^6/uL (4.1-5.3) 05/17/23 19:00 Hgb 12.8 g/dL (11.5-15.3) 05/17/23 19:00 Hct 39.3 % (37.0-47.0) 05/17/23 19:00 MCV 90.8 fl (81-99) 05/17/23 19:00 MCH 29.6 pg (28.0-34.0) 05/17/23 19:00 MCHC 32.6 g/dL (30.0-36.0) 05/17/23 19:00 RDW 12.2 % (12.1-15.1) 05/17/23 19:00 Plt Count 301 10^3/cmm (130-400) 05/17/23 19:00 MPV 10.1 fL (7.4-10.4) 05/17/23 19:00 Neut % (Auto) 55.5 % 05/17/23 19:00 Lymph % (Auto) 28.8 % 05/17/23 19:00 [place] % (Auto) 12.7 % 05/17/23 19:00 Eos % (Auto) 2.3 % 05/17/23 19:00 Baso % (Auto) 0.5 % 05/17/23 19:00 Neut # (Auto) 3.55 10^3/uL (1.8-7.7) 05/17/23 19:00 Lymph # (Auto) 1.8 10^3/uL (0.8-4.8) 05/17/23 19:00 [place] # (Auto) 0.8 10^3/uL (0.2-0.9) 05/17/23 19:00 Eos # (Auto) 0.2 10^3/uL (0.0-0.8) 05/17/23 19:00 Baso # (Auto) 0.0 10^3/uL (0.0-0.1) 05/17/23 19:00 Nucleated RBC % (auto) 0 % 05/17/23 19:00 Nucleated RBCs # 0.0 /100WBC 05/17/23 19:00 Sodium 140 mmol/L (136-145) 05/18/23 04:12 Potassium 4.2 mmol/L (3.5-5.1) 05/18/23 04:12 Chloride 107 mmol/L (98-107) 05/18/23 04:12 Carbon Dioxide 23 mmol/L (22-29) 05/18/23 04:12 Anion Gap 14.2 (5-19) 05/18/23 04:12 BUN 16 mg/dL (8-23) 05/18/23 04:12 Creatinine 0.7 mg/dL (0.5-0.9) 05/18/23 04:12 GFR Calculation Not Reportable 05/18/23 04:12 Glucose 152 mg/dL (65-115) H 05/18/23 04:12 Calculated Osmolality 289 mOsm/kg (285-295) 05/17/23 19:00 Calcium 9.0 mg/dL (8.5-10.5) 05/18/23 04:12 Phosphorus 2.9 mg/dL (2.5-4.5) 05/18/23 04:12 Magnesium 1.9 mg/dL (1.7-2.3) 05/17/23 19:00 Total Bilirubin 0.3 mg/dL (0.15-1.2) 05/17/23 19:00 AST 29 U/L (0-32) 05/17/23 19:00 ALT 15 U/L (0-33) 05/17/23 19:00 Alkaline Phosphatase 41 U/L (35-105) 05/17/23 19:00 Total Protein 7.1 g/dL (6.6-8.7) 05/17/23 19:00 Albumin 3.9 g/dL (3.5-5.2) 05/18/23 04:12 Globulin 2.7 g/dL (1.3-4.6) 05/17/23 19:00 TSH 1.07 uIU/mL (0.27-4.20) 05/17/23 19:00 Urine Color Yellow (Yellow) 05/17/23 19:49 Urine Appearance Clear (CLEAR) 05/17/23 19:49 Urine pH 8 (5-7) H 05/17/23 19:49 Ur Specific [place] 1.005 (1.005-1.030) 05/17/23 19:49 Urine Protein Neg (Negative) 05/17/23 19:49 Urine Glucose (UA) Norm (Normal) 05/17/23 19:49 Urine Ketones Negative (Negative) 05/17/23 19:49 Urine Blood Neg (Negative) 05/17/23 19:49 Urine Nitrate Negative (Negative) 05/17/23 19:49 Urine Bilirubin Neg (Negative) 05/17/23 19:49 Prot Sulfosalicylic Acd Negative (Negative) 05/17/23 19:49 Urine Urobilinogen Norm mg/dL (Negative) 05/17/23 19:49 Ur Leukocyte Esterase 1+ (Negative) H 05/17/23 19:49 Urine RBC 0-4 /hpf (0-2) H 05/17/23 19:49 Urine WBC 10-15 /hpf (0-5) H 05/17/23 19:49 Ur Squamous Epith Cells 0-4 /hpf (0-5) H 05/17/23 19:49 Amorphous Sediment Not Reportable 05/17/23 19:49 Urine Bacteria Trace /hpf (NONE) 05/17/23 19:49 Vitals Last Vital Signs Temp 97.7 F 05/19/23 12:46 Pulse 93 05/19/23 12:46 Resp 18 05/19/23 12:46 BP 141/75 05/19/23 12:46 Pulse Ox 96 05/19/23 12:46 O2 Del Method Room Air 05/19/23 11:17 Discharge Plan Discharge Patient Disposition: Home Condition: Stable Prescriptions: Continued ketoconazole 2 % shampoo 1 applic topical Q7D (DME) lancets [FreeStyle Lancets] 28 gauge misc See Rx Instructions .Route Rx Instructions: As directed, three times daily latanoprost 0.005 % drops 1 drp ophthalmic (eye) BEDTIME Rx Instructions: one drop to each eye loratadine [Allergy Relief (loratadine)] 10 mg tablet 10 mg PO QAM diphenhydramine HCl [Allergy Relief(diphenhydramin)] 25 mg tablet 50 mg PO BEDTIME High Potency Multivit (w-iron) 9 mg iron-400 mcg tablet 1 tab PO QAM albuterol sulfate [Ventolin HFA] 90 mcg/actuation HFA aerosol inhaler 2 puff inhalation Q4H PRN (Reason: shortness of breath or wheezing) Qty: 8.5 0RF diclofenac sodium 3 % gel 2 g topical QID Qty: 100 1RF (DME) diabetic shoes See Rx Instructions .Route .MEDSUPPLY Qty: 1 0RF Rx Instructions: As directed (DME) FreeStyle Lite Strips Strip See Rx Instructions .ROUTE .COMPLEX Qty: 300 0RF Dose Instruction: USE 1 STRIP TO CHECK GLUCOSE THREE TIMES DAILY Rx Instructions: USE 1 STRIP TO CHECK GLUCOSE THREE TIMES DAILY (DME) pen needle, diabetic [TechLITE Pen Needle] 32 gauge x 5/32 needle See Rx Instructions .ROUTE .COMPLEX Qty: 100 0RF Dose Instruction: USE DIRECTED Rx Instructions: USE DIRECTED trazodone 50 mg tablet 50 mg PO BEDTIME simvastatin 80 mg tablet 80 mg PO BEDTIME omeprazole 40 mg capsule,delayed release(DR/EC) 40 mg PO QAM Calcium 600 600 mg calcium (1,500 mg) Tablet 600 mg PO QAM timolol maleate 0.5 % drops 1 drp ophthalmic (eye) QAM metoprolol tartrate 25 mg tablet 12.5 mg PO BEDTIME fenofibrate 160 mg tablet 160 mg PO BEDTIME Lantus Solostar U-100 Insulin 100 unit/mL (3 mL) insulin pen 27 unit SUBCUT QAM omega-3 fatty acids-fish oil 684-1,200 mg Capsule,Delayed Release(Dr/Ec) 1 cap PO QAM Farxiga 5 mg tablet 5 mg PO QAM turmeric 400 mg Capsule 400 mg PO QAM cholecalciferol (vitamin D3) [Vitamin D3] 25 mcg (1,000 unit) Capsule 25 mcg PO QAM Discharge Orders: Discharge Order (Routine); Ordered 05/19/23 Ordered By: Maximus Mcconnell Other Ambulatory Orders: Physical Therapy Eval and Treat Outpatient (Order) Timeframe: [id number] Facility: [facility] - Location: Physical Therapy Ordered By: Maximus Mcconnell Referrals: Rena Vu DO [Primary Care Provider] - 4-7 days (Please call [phone] to set up a follow-up appointment to see your PCP. ) Discharge Diet: Usual diet Discharge Activity: Increase activity as tolerated Patient Instructions: Dizziness, Vertigo (DC), Benign Paroxysmal Positional Vertigo (DC), Opioid Safety Discharge Attestations Time Spent in Discharge Care*: greater than 30 min Specific Discharge Activities: educating patient, educating and/or supporting family/caregiver, discussing with pcp/other providers, discussing with nurse case management/social workers/dc planners, documenting/other paperwork and evaluating patient/reviewing data Quality Metrics Clinical Quality Measures [ No reported AMI, CVA or VTE this stay] Coding Level of Care Code Acute Code for Chg Fwd Total time (in minutes) for Discharge: 30 Diagnoses Dizziness R42 Controlled type 2 diabetes mellitus, with long-term current use of insulin E11.9; Z79.4 Diabetes mellitus complication status: without complication Hyperlipidemia E78.2 Hyperlipidemia type: mixed hyperlipidemia GERD (gastroesophageal reflux disease) K21.9 Insomnia G47.09 Insomnia type: other insomnia
== END 2023-05-19 12:30 | disposition home or self-care (01) | DRG 149 ==
LOC: ER 21:37 → MEDSURG 21:44
PROVIDERS: Admitting Provider Internal Medicine; Emergency Provider Emergency Medicine; PCP Family Medicine; Visit Provider Family Medicine
DX: R42 Dizziness and giddiness (principal); E11.9 Type 2 diabetes mellitus without complications; Z79.4 Long term (current) use of insulin; E78.2 Mixed hyperlipidemia; K21.9 Gastro-esophageal reflux disease without esophagitis; G47.09 Other insomnia; Z79.891 Long term (current) use of opiate analgesic; Z87.891 Personal history of nicotine dependence
CPT/HCPCS: 36415; 70496; 70498; 70551; 80053; 80069; 81001; 83735; 84443; 85025; 93005; 96365; 96366; 96372; 99285; G0378; J1815; J3475; J7030; J8597; Q9967

== ENCOUNTER 2023-05-27 06:00 | Outpatient (RCR) | payer MEDICARE, OTHER, SELFPAY | END 2023-06-13 23:59 | disposition home or self-care (01) | LOC: SPT 06:00 | PROVIDERS: Visit Provider Family Medicine | DX: H81.10 Benign paroxysmal vertigo, unspecified ear (principal) | CPT/HCPCS: 95992; 97161 ==

== ENCOUNTER → 2023-08-23 13:53 | Outpatient (BNVA) | payer MEDICARE, OTHER, SELFPAY | PROVIDERS: Visit Provider Family Medicine | DX: E11.9 Type 2 diabetes mellitus without complications (principal); Z79.4 Long term (current) use of insulin | CPT/HCPCS: 80053; 83036 ==

== ENCOUNTER 2023-09-29 12:38 | Emergency (ER) | payer MEDICARE, OTHER, SELFPAY ==
[2023-09-29 12:44] VITALS: BP 172/91; PULSE 80; RESP 16; TEMP 36.6; O2SAT 98
--- NOTE | 2023-09-29 12:56 | CTR_ITS ---
PROCEDURE INFORMATION: Exam: CT Abdomen And Pelvis With Contrast Exam date and time: 09/29/2023 1:51 PM Age: 77 years old Clinical indication: Abdominal pain; Localized; Right lower quadrant (rlq); Additional info: Abd pain TECHNIQUE: Imaging protocol: Computed tomography of the abdomen and pelvis with contrast. Radiation optimization: All CT scans at this facility use at least one of these dose optimization techniques: automated exposure control; mA and/or kV adjustment per patient size (includes targeted exams where dose is matched to clinical indication); or iterative reconstruction. Contrast material: OMNI 350; Contrast volume: 75 ml; Contrast route: INTRAVENOUS (IV); REPORTING DATA: Count of CT and Cardiac NM exams in prior 12 months: This patient has received [address] and 0 known cardiac nuclear medicine studies in the 12 months prior to the current study. COMPARISON: No relevant prior studies available. RADIATION DOSE METRICS: Total DLP (mGy-cm): 324.3 FINDINGS: Liver: No mass. Gallbladder and bile ducts: Cholelithiasis. Pancreas: No ductal dilation. Spleen: No splenomegaly. Adrenal glands: No mass. Kidneys and ureters: Bilateral nonobstructing renal calculi measuring with 6 mm on the right and 3 mm on the left. Bilateral small renal cysts and other hypodensities too small to definitively characterize. Stomach and bowel: No obstruction. Colonic diverticulosis without evidence of acute diverticulitis. Appendix: Normal appendix. Intraperitoneal space: No free air. No significant fluid collection. Vasculature: No abdominal aortic aneurysm. Lymph nodes: No enlarged lymph nodes. Urinary bladder: No acute findings. Reproductive: Unremarkable as visualized. Bones/joints: Degenerative changes without acute findings. Soft tissues: Unremarkable. CT/CT abdomen pelvis w con* [id number] IMPRESSION: Bilateral nonobstructing renal calculi. Colonic diverticulosis without evidence of acute diverticulitis.
--- NOTE | 2023-09-29 13:01 | ED_ITS ---
HPI - Abdominal Pain 2 General: Chief Complaint: Abdominal Pain Stated Complaint: right side abd pain, bloated,N/V Time Seen by Provider: 09/29/23 12:51 Source: patient Mode of arrival: ambulatory Limitations: no limitations History of Present Illness: 77-year-old female who states that she h as been having right lower quadrant pain over the last 2 days states pain sharp in nature much worse with movement rates it a 2 out of 10 currently she has had no vomiting or diarrhea has had some mild constipation. Associated Symptoms: Denies chills, diarrhea, dysuria, fever(s), nausea and vomiting Review of Systems 2 Const: Denies: fever(s), chills, body aches or change in appetite Eyes: Denies: blurry vision or eye discomfort ENMT: Denies: throat pain or dental pain Card: Denies: chest pain Resp: Denies: dyspnea GI: Reports: abdominal pain; Denies: nausea, vomiting or diarrhea : Denies: dysuria Musc: Denies: neck pain or back pain Skin/Breast: Denies: rash Neuro: Denies: headache(s) PFSH ED 2 PFSH: Medical History Strain of left trapezius muscle H. pylori infection Diverticulosis large intestine w/o perforation or abscess w/bleeding Gastritis Fatigue Hypersomnolence Bilateral shoulder pain Encounter to establish care Hyperlipidemia Controlled type 2 diabetes mellitus, with long-term current use of insulin Surgical History Hx of colonoscopy 09/17/22 Social History Smoking and tobacco/nicotine status: former use of tobacco/nicotine Second hand smoke exposure: No Alcohol intake: current Alcohol intake frequency: holidays/special occasions only Alcohol type: wine Substance/Drug Use: never Adopted: No Caregiver/support person: No Lives independently: Yes Household members: spouse and children Housing: House Marital status: Number of children: 3 Number of grandchildren: 4 service: No Current occupational status: retired Pets and animals: Yes Pets & animals: dog(s) and fish Current gender identity: Female Physical Exam 2 Const: COMMON NORMALS: no acute distress, patient oriented x3 and healthy appearing HENMT: COMMON NORMALS: normocephalic and atraumatic HEAD & SCALP: n ormocephalic and atraumatic Neck/C-Spine: COMMON NORMALS: full ROM and supple Chest: COMMONS NORMALS: normal inspection of the chest Resp: COMMON NORMALS: normal respiratory effort Cardio: COMMON NORMALS: regular rate, regular rhythm and No murmurs present (Cardio) RATE: regular rate RHYTHM: regular rhythm GI: COMMON NORMALS: Normal to inspection, nondistended, normoactive bowel sounds present, Soft to palpation and no masses PALPATION: Yes Soft to palpation and Yes Tenderness to palpation present (GI) Details: RLQ Extremity: COMMON NORMALS: normal to inspection and full ROM Neuro: COMMON NORMALS: patient oriented x3, moves all extremities and no focal motor deficits Psych: COMMON NORMALS: mental status grossly normal, Normal thought process present and cooperative THOUGHT PROCESS: Normal thought process present Skin: COMMON NORMALS: no rashes or lesions noted and no wounds GENERAL SKIN EXAM: no rashes or lesions noted Course 2 Vital Signs: Vital signs: Vital Signs Temperature 97.9 F 09/29/23 12:44 Pulse Rate 67 09/29/23 13:49 Respiratory Rate 16 09/29/23 12:44 Blood Pressure 143/77 09/29/23 13:49 Pulse Oximetry 96 09/29/23 13:49 Oxygen Delivery Me thod Room Air 09/29/23 12:44 MDM - Abdominal Pain Medical Decision Making Patient presents here with abdominal pain blood work CT scan here are normal no signs of appendicitis her pain is much improved abdominal exam at discharge is benign she is stable for discharge she is to follow-up with PCP and return if worsening she understands agrees to plan Medical Records I reviewed the patient's medical records. Lab Data I reviewed the patient's lab results. 09/29/23 13:06 09/29/23 13:06 Labs/Radiology: Radiology Impressions Abdomen/Pelvis CT 09/29/23 12:56 IMPRESSION: Bilateral nonobstructing renal calculi. Colonic diverticulosis without evidence of acute diverticulitis. Laboratory Results WBC 6.44 10^3/uL (3.29-11.43) 09/29/23 13:06 RBC 4.23 10^6/uL (3.85-5.65) 09/29/23 13:06 Hgb 12.70 g/dL (11.27-16.99) 09/29/23 13:06 Hct 39.0 % (36-47) 09/29/23 13:06 MCV 92.2 fl (85-98) 09/29/23 13:06 MCH 30.0 pg (27-33) 09/29/23 13:06 MCHC 32.6 g/dL (30-55) 09/29/23 13:06 RDW 11.9 % (12.1-15.1) L 09/29/23 13:06 Plt Count 267 10^3/cmm (157-399) 09/29/23 13:06 MPV 10.3 fL (7.4-10.4) 09/29/23 13:06 Neut % (Auto) 59.1 % 09/29/23 13:06 Lymph % (Auto) 28.9 % 09/29/23 13:06 Gregory % (Auto) 10.1 % 09/29/23 13:06 Eos % (Auto) 1.1 % 09/29/23 13:06 Baso % (Auto) 0.6 % 09/29/23 13:06 Neut # (Auto) 3.81 10^3/uL (1.8-7.7) 09/29/23 13:06 Lymph # (Auto) 1.9 10^3/uL (0.8-4.8) 09/29/23 13:06 Gregory # (Auto) 0.7 10^3/uL (0.2-0.9) 09/29/23 13:06 Eos # (Auto) 0.1 10^3/uL (0.0-0.8) 09/29/23 13:06 Baso # (Auto) 0.0 10^3/uL (0.0-0.1) 09/29/23 13:06 Nucleated RBC % (auto) 0 % 09/29/23 13:06 Nucleated RBCs # 0.0 /100WBC 09/29/23 13:06 Sodium 136 mmol/L (136-145) 09/29/23 13:06 Potassium 4.5 mmol/L (3.5-5.1) 09/29/23 13:06 Chloride 101 mmol/L (98-107) 09/29/23 13:06 Carbon Dioxide 23 mmol/L (22-29) 09/29/23 13:06 Anion Gap 16.5 (5-19) 09/29/23 13:06 BUN 20 mg/dL (8-23) 09/29/23 13:06 Creatinine 0.9 mg/dL (0.5-0.9) 09/29/23 13:06 GFR Calculation Not Reportable 09/29/23 13:06 Glucose 166 mg/dL (65-115) H 09/29/23 13:06 Calculated Osmolality 288 mOsm/kg (285-295) 09/29/23 13:06 Calcium 9.6 mg/dL (8.5-10.5) 09/29/23 13:06 Total Bilirubin 0.3 mg/dL (0.15-1.2) 09/29/23 13:06 AST 23 U/L (0-32) 09/29/23 13:06 ALT 17 U/L (0-33) 09/29/23 13:06 Alkaline Phosphatase 52 U/L (35-105) 09/29/23 13:06 Total Protein 7.6 g/dL (6.6-8.7) 09/29/23 13:06 Albumin 4.6 g/dL (3.5-5.2) 09/29/23 13:06 Globulin 3.0 g/dL (1.3-4.6) 09/29/23 13:06 Lipase 79 U/L (13-60) H 09/29/23 13:06 Urine Color Dark yellow (Yellow) 09/29/23 12:45 Urine Appearance Clear (CLEAR) 09/29/23 12:45 Urine pH 6.5 (5-7) 09/29/23 12:45 Ur Specific [place] 1.020 (1.005-1.030) 09/29/23 12:45 Urine Protein Neg (Negative) 09/29/23 12:45 Urine Glucose (UA) 4+ (Normal) H 09/29/23 12:45 Urine Ketones Negative (Negative) 09/29/23 12:45 Urine Blood 2+ (Negative) H 09/29/23 12:45 Urine Nitrate Negative (Negative) 09/29/23 12:45 Urine Bilirubin Neg (Negative) 09/29/23 12:45 Urine Urobilinogen Norm mg/dL (Negative) 09/29/23 12:45 Ur Leukocyte Esterase Trace (Negative) H 09/29/23 12:45 Urine RBC 5-10 /hpf (0-2) H 09/29/23 12:45 Urine WBC 0-4 /hpf (0-5) H 09/29/23 12:45 Ur Squamous Epith Cells None /hpf (0-5) 09/29/23 12:45 Ur Transition Epith Cell 0-4 /hpf 09/29/23 12:45 Amorphous Sediment Not Reportable 09/29/23 12:45 Urine Bacteria Trace /hpf (NONE) 09/29/23 12:45 All radiology interpretation(s) finalized by discharge Discharge Plan Discharge Patient Disposition: Home Clinical Impression: Abdominal pain Qualifiers: Abdominal location: generalized Qualified Code(s): R10.84 - Generalized abdominal pain Condition: Stable Prescriptions: No Action (DME) lancets [FreeStyle Lancets] 28 gauge misc See Rx Instructions .Route Rx Instructions: As directed, three times daily latanoprost 0.005 % drops 1 drp ophthalmic (eye) BEDTIME Rx Instructions: one drop to each eye (DME) diabetic shoes See Rx Instructions .Route .MEDSUPPLY Qty: 1 0RF Rx Instructions: As directed (DME) FreeStyle Lite Strips Strip See Rx Instructions .ROUTE .COMPLEX Qty: 300 0RF Dose Instruction: USE 1 STRIP TO CHECK GLUCOSE THREE TIMES DAILY Rx Instructions: USE 1 STRIP TO CHECK GLUCOSE THREE TIMES DAILY (DME) pen needle, diabetic [TechLITE Pen Needle] 32 gauge x 5/32 needle See Rx Instructions .ROUTE .COMPLEX Qty: 100 0RF Dose Instruction: USE DIRECTED Rx Instructions: USE DIRECTED Farxiga 5 mg tablet 5 mg PO QAM Qty: 90 1RF calcium carbonate [Calcium 600] 600 mg calcium (1,500 mg) Tablet 600 mg PO QAM timolol maleate 0.5 % drops 1 drp ophthalmic (eye) QAM metoprolol tartrate 25 mg tablet 12.5 mg PO BEDTIME insulin glargine [Lantus Solostar U-100 Insulin] 100 unit/mL (3 mL) insulin pen 27 unit SUBCUT QAM turmeric 400 mg Capsule 400 mg PO QAM cholecalciferol (vitamin D3) [Vitamin D3] 25 mcg (1,000 unit) Capsule 25 mcg PO QAM multivitamin Tablet 1 tab PO QAM Fish Oil Concentrate 1,000 mg Capsule 1,000 mg PO DAILY Ventolin HFA 90 mcg/actuation HFA aerosol inhaler 2 puff INHALATION Q4H PRN (Reason: Shortness Of Breath) Flonase 50 mcg/actuation [place],Suspension 1 spray INTRANASAL BID Rx Instructions: administer into each nostril Glucosamine Chondroitin 550-30-1 mg Capsule 1 cap PO DAILY trazodone 50 mg tablet 50 mg PO BEDTIME simvastatin 80 mg tablet 80 mg PO BEDTIME omeprazole 40 mg capsule,delayed release(DR/EC) 40 mg PO QAM meclizine 25 mg tablet 25 mg PO TID PRN (Reason: dizziness) fenofibrate 160 mg tablet 160 mg PO BEDTIME Discharge Orders: Discharge ED (Routine); Ordered 09/29/23 Ordered By: Fito Houston Referrals: Rena Vu DO [Primary Care Provider] - 1-3 days Discharge Diet: Advance as tolerated Discharge Activity: Resume usual activity Patient Instructions: Abdominal Pain (ED) Coding Level of Care Code ED General Merchandise Manager for Loren Mata
[2023-09-29 13:21] LABS: Basophils % 0.6 %; Eosinophils # 0.1 10^3/uL (0.0-0.8); Eosinophils % 1.1 %; Lymphocytes # 1.9 10^3/uL (0.8-4.8); Lymphocytes % 28.9 %; Mean Corpuscular HGB Conc 32.6 g/dL (30-55); Mean Corpuscular Volume 92.2 fl (85-98); Mean Platelet Volume 10.3 fL (7.4-10.4); Monocytes # 0.7 10^3/uL (0.2-0.9); Monocytes % 10.1 %; Neutrophils # 3.81 10^3/uL (1.8-7.7); Neutrophils % 59.1 %; Nucleated Red Blood Cells % 0 %; Platelet Count 267 10^3/cmm (157-399); Red Blood Count 4.23 10^6/uL (3.85-5.65); Red Cell Distribution Width 11.9 % (12.1-15.1); White Blood Count 6.44 10^3/uL (3.29-11.43)
[2023-09-29] MEDS: sodium chloride 0.9% 1,000 ML 999 ML IV (13:25)
[2023-09-29 13:40] LABS: Add Urine Microscopic? YES; Bilirubin Urine Neg (Negative); Blood Urine 2+ (Negative); Glucose Urine UA 4+ (Normal); Ketones Urine Negative (Negative); Leukocyte Esterase Urine Trace (Negative); Nitrate Urine Negative (Negative); Protein Urine Neg (Negative); Urine Appearance Clear (CLEAR); Urine Color Dark Yellow (Yellow); Urobilinogen Urine Norm (Negative); WBC Urine 0-4 /hpf (0-5); pH Urine 6.5 (5-7)
[2023-09-29 13:40] LABS: Alanine Aminotransferase 17 U/L (0-33); Albumin Level 4.6 g/dL (3.5-5.2); Alkaline Phosphatase 52 U/L (35-105); Anion Gap 16.5 (5-19); Aspartate Amino Transferase 23 U/L (0-32); Blood Urea Nitrogen 20 mg/dL (8-23); Calcium 9.6 mg/dL (8.5-10.5); Carbon Dioxide 23 mmol/L (22-29); Chloride 101 mmol/L (98-107); Glucose 166 mg/dL (65-115); Lipase 79 U/L (13-60); Osmolality Calculated 288 mOsm/kg (285-295); Potassium 4.5 mmol/L (3.5-5.1); Sodium 136 mmol/L (136-145); Total Bilirubin 0.3 mg/dL (0.15-1.2); Total Protein 7.6 g/dL (6.6-8.7)
[2023-09-29 13:41] LABS: Add Urine Culture? No; Bacteria Urine TRACE /hpf; Transitional Epi Cells Urine 0-4 /hpf
[2023-09-29 13:49] VITALS: BP 143/77; PULSE 67; O2SAT 96
[2023-09-29] MEDS: iohexol 350 mg/mL 500 mL Btl (per mL) IV (13:56)
[2023-09-29 14:48] VITALS: BP 161/83; PULSE 65; O2SAT 98
== END 2023-09-29 14:50 | disposition home or self-care (01) ==
PROVIDERS: Emergency Provider Emergency Medicine; PCP Family Medicine
DX: R10.84 Generalized abdominal pain (principal); Z79.4 Long term (current) use of insulin; E78.5 Hyperlipidemia, unspecified; E11.9 Type 2 diabetes mellitus without complications; Z87.891 Personal history of nicotine dependence
CPT/HCPCS: 74177; 80053; 81001; 83690; 85025; 99285; J7030; Q9967

== ENCOUNTER → 2023-11-28 10:16 | Outpatient (BNVA) | payer MEDICARE, OTHER, SELFPAY | PROVIDERS: PCP Family Medicine; Visit Provider Family Medicine | DX: E11.9 Type 2 diabetes mellitus without complications (principal); Z79.4 Long term (current) use of insulin; B02.29 Other postherpetic nervous system involvement | CPT/HCPCS: 80053; 80061; 83036 ==

== ENCOUNTER 2024-02-03 11:13 | Emergency (ER) | payer MEDICARE, OTHER, SELFPAY ==
[2024-02-03 11:18] VITALS: BP 150/86; PULSE 83; RESP 16; TEMP 36.4; O2SAT 94; BMI 21.2
[2024-02-03 11:44] VITALS: BP 159/94; PULSE 68; RESP 16; O2SAT 94
--- NOTE | 2024-02-03 11:44 | CT_ITS ---
WS: [id number] CT LUMBAR SPINE, noncontrast. HISTORY: low back pain TECHNIQUE: Contiguous 2.0 mm axial imaging are performed. Sagittal and coronal reformats are submitte d and reviewed. All CT scans at [facility] use at least one of these dose optimization techni ques: automated exposure control; mA and/or kV adjustment per patient size (includes targeted exams w here dose is matched to clinical indication); or iterative reconstruction. IV contrast: None DLP: 442.10 mGy.cm COMPARISON: CT 09/29/2023 Straightening of the normal lumbar lordosis. No fracture. Degenerative changes with erosions involvin g the inferior endplate of L3. Pedicles are intact. L1-2: Mild annular disc bulging and facet arthritis. L2-3: Diffuse annular disc bulging. Small bilateral foraminal disc protrusions. No stenosis. L3-4: Moderate annular disc bulging. Mild osteophytic ridging. Mild bilateral foraminal stenosis. L4-5: Bilateral facet arthritis. Mild foraminal stenosis. L5-S1: Mild annular disc bulging asymmetric to the LEFT. Moderate bilateral foraminal stenosis, LEFT greater than RIGHT. Facet arthritis. Bilateral nonobstructing renal calculi. No adrenal mass. Mild atherosclerosis aorta. Bilateral mild s acroiliitis. Small erosions along the SI joints. IMPRESSION: 1. No acute compression fracture lumbar spine. 2. Moderate bilateral foraminal stenosis at L5-S1. 3. Mild bilateral foraminal stenosis at L3-4 and L4-5. 4. Mild sacroiliitis.
--- NOTE | 2024-02-03 11:45 | ED_ITS ---
HPI - Back Pain/Injury General: Chief Complaint: Back Pain/Injury Stated Complaint: back pain Time Seen by Provider: 02/03/24 11:15 History of Present Illness: 78-year-old woman with a history of hype rtension, diabetes and some chronic back issues who presents to the emergency room with low back pain. This been going on for at least a week now. Chest pain her low back that radiates down both legs. She says when she has had sciatica in the past has been down just 1 leg. No saddle numbness, no urinary retention or incontinence, no focal motor deficit, no sensory deficit. no recent fever. no cough. no shortness of breath. no chest pain. no abdominal pain. no nausea or vomiting. no dysuria. no altered mental status. no edema. Review of Systems Narrative: Constitutional symptoms: Negative except as documented in HPI. Skin symptoms: Negative except as documented in HPI. Eye symptoms: Negative except as documented in HPI. ENMT symptoms: Negative except as documented in HPI. Respiratory symptoms: Negative except as documented in HPI. Cardiovascular symptoms: Negative except as documented in HPI. Gastrointestinal symptoms: Negative except as documented in HPI. Genitourinary symptoms: Negative except as documented in HPI. Musculoskeletal symptoms: Negative except as documented in HPI. Neurologic symptoms: Negative except as documented in HPI. Psychiatric symptoms: Negative except as documented in HPI. Endocrine symptoms: Negative except as documented in HPI. [facility] ED PFSH: Medical History Strain of left trapezius muscle H. pylori infection Diverticulosis large intestine w/o perforation or abscess w/bleeding Gastritis Fatigue Hypersomnolence Bilateral shoulder pain Encounter to establish care Hyperlipidemia Controlled type 2 diabetes mellitus, with long-term current use of insulin Surgical History Hx of colonoscopy 09/17/22 Social History Smoking and tobacco/nicotine status: former use of tobacco/nicotine Second hand smoke exposure: No Alcohol intake: current Alcohol intake frequency: holidays/special occasions only Alcohol type: wine Substance/Drug Use: never Adopted: No Caregiver/support person: No Lives independently: Yes Household members: spouse and children Housing: House Marital status: Number of children: 3 Number of grandchildren: 4 service: No Current occupational status: retired Pets and animals: Yes Pets & animals: dog(s) and fish Current gender identity: Female Physical Exam Narrative: EXAM NARRATIVE: General: Alert, no acute distress. Skin: warm and dry Head: Normocephalic Neck: Trachea midline Eye: Extraocular movements are intact. Ears, nose, mouth and throat: Oral mucosa moist Respiratory: Respirations are non-labored Musculoskeletal: Normal ROM Neurological: Alert and oriented to person, place, time, and situation, No focal neurological deficit observed. Psychiatric: Cooperative, appropriate mood & affect. Course Vital Signs: Vital signs: Vital Signs Temperature 97.6 F 02/03/24 11:18 Pulse Rate 68 02/03/24 11:44 Respiratory Rate 16 02/03/24 11:44 Blood Pressure 159/94 02/03/24 11:44 Pulse Oximetry 94 02/03/24 11:44 Oxygen Delivery Me thod Room Air 02/03/24 11:44 MDM - Back Pain/Injury Medical Decision Making Medical decision making: Differential diagnosis including but not limited to and based on the above HPI, review of systems and physical exam: CT of lumbar spine was ordered just to be sure there is no new structural changes as her symptoms are different than previous. Orders placed to evaluate differential diagnosis based on the above differential, HPI and physical exam CT of the lumbar spine without contrast: 1. No acute compression fracture lumbar spine. 2. Moderate bilateral foraminal stenosis at L5-S1. 3. Mild bilateral foraminal stenosis at L3-4 and L4-5. 4. Mild sacroiliitis. I reviewed the patient's medical record. Reexamination: Patient remains with no focal deficits. States some mild improvement in her symptoms. We discussed that steroids will push up her sugars and she needs to keep an eye on that and adjust her insulin if necessary. All radiology interpretation(s) finalized by discharge Other Data Assessment and plan: -Norflex and Decadron in the emergency room. - Discharged home - Discussed plan with patient. Answered any questions. - Evaluation and treatment of this problem were appropriate in the emergency setting. Discharge Plan Discharge Patient Disposition: Home Clinical Impression: Sciatica Condition: Stable Prescriptions: New cyclobenzaprine 10 mg tablet 10 mg PO Q8H Qty: 20 0RF dexamethasone 6 mg tablet 6 mg PO DAILY 5 Days Qty: 5 0RF tramadol 50 mg tablet 50 mg PO Q8H PRN (Reason: pain) Qty: 20 0RF No Action (DME) lancets [FreeStyle Lancets] 28 gauge misc See Rx Instructions .Route Rx Instructions: As directed, three times daily latanoprost 0.005 % drops 1 drp ophthalmic (eye) BEDTIME Rx Instructions: one drop to each eye (DME) diabetic shoes See Rx Instructions .Route .MEDSUPPLY Qty: 1 0RF Rx Instructions: As directed (DME) FreeStyle Lite Strips Strip See Rx Instructions .ROUTE .COMPLEX Qty: 300 0RF Dose Instruction: USE 1 STRIP TO CHECK GLUCOSE THREE TIMES DAILY Rx Instructions: USE 1 STRIP TO CHECK GLUCOSE THREE TIMES DAILY (DME) pen needle, diabetic [TechLITE Pen Needle] 32 gauge x /32 needle See Rx Instructions .ROUTE .COMPLEX Qty: 100 0RF Dose Instruction: USE DIRECTED Rx Instructions: USE DIRECTED Farxiga 5 mg tablet 5 mg PO QAM Qty: 90 1RF omeprazole 40 mg capsule,delayed release(DR/EC) See Rx Instructions .ROUTE .COMPLEX Qty: 90 0RF Dose Instruction: Take 1 capsule by mouth once daily Rx Instructions: Take 1 capsule by mouth once daily simvastatin 80 mg tablet 80 mg PO BEDTIME Qty: 90 1RF fenofibrate 160 mg tablet See Rx Instructions .ROUTE .COMPLEX Qty: 90 0RF Dose Instruction: Take 1 tablet by mouth once daily Rx Instructions: Take 1 tablet by mouth once daily insulin degludec [Tresiba FlexTouch U-100] 100 unit/mL (3 mL) insulin pen 27 unit SUBCUT BID Qty: 15 3RF gabapentin 100 mg capsule See Rx Instructions .ROUTE .COMPLEX Qty: 30 1RF Dose Instruction: TAKE 1 CAPSULE BY MOUTH EVERY DAY AT BEDTIME Rx Instructions: TAKE 1 CAPSULE BY MOUTH EVERY DAY AT BEDTIME calcium carbonate [Calcium 600] 600 mg calcium (1,500 mg) Tablet 600 mg PO QAM timolol maleate 0.5 % drops 1 drp ophthalmic (eye) QAM metoprolol tartrate 25 mg tablet 12.5 mg PO BEDTIME turmeric 400 mg Capsule 400 mg PO QAM cholecalciferol (vitamin D3) [Vitamin D3] 25 mcg (1,000 unit) Capsule 25 mcg PO QAM multivitamin Tablet 1 tab PO QAM Fish Oil Concentrate 1,000 mg Capsule 1,000 mg PO DAILY Flonase 50 mcg/actuation [place],Suspension 1 spray INTRANASAL BID Rx Instructions: administer into each nostril Glucosamine Chondroitin 550-30-1 mg Capsule 1 cap PO DAILY Discharge Orders: Discharge ED (Routine); Ordered 02/03/24 Ordered By: Madeline Pena Referrals: Rena Vu DO [Primary Care Provider] - Discharge Diet: Usual diet Discharge Activity: Increase activity as tolerated Patient Instructions: Lumbar Radiculopathy (ED), Opioid Safety Coding Level of Care Code ED Floor Coverings Salesperson for Loren Mata
[2024-02-03] MEDS: orphenadrine 30 mg/mL Inj 2 mL IVP (12:05)
[2024-02-03] MEDS: dexamethasone 10 mg/mL INJ IVP (12:06)
[2024-02-03 12:43] VITALS: BP 140/78; PULSE 64; RESP 17; O2SAT 96
== END 2024-02-03 12:50 | disposition home or self-care (01) ==
PROVIDERS: Emergency Provider Emergency Medicine; PCP Family Medicine
DX: M54.30 Sciatica, unspecified side (principal); E78.5 Hyperlipidemia, unspecified; E11.9 Type 2 diabetes mellitus without complications; Z87.891 Personal history of nicotine dependence; Z79.4 Long term (current) use of insulin
CPT/HCPCS: 72131; 96374; 96375; 99285; J1100; J2360

== ENCOUNTER → 2024-02-28 10:40 | Outpatient (BNVA) | payer MEDICARE, OTHER, SELFPAY | PROVIDERS: PCP Family Medicine; Visit Provider Family Medicine | DX: E11.9 Type 2 diabetes mellitus without complications (principal); Z79.4 Long term (current) use of insulin; Z13.6 Encounter for screening for cardiovascular disorders | CPT/HCPCS: 80053; 82043; 83036 ==

== ENCOUNTER 2024-03-17 13:08 | Outpatient (RCR) | payer MEDICARE, OTHER, SELFPAY | END 2024-04-12 23:59 | disposition home or self-care (01) | LOC: SPT 13:08 | PROVIDERS: PCP Family Medicine; Visit Provider Family Medicine | DX: M54.16 Radiculopathy, lumbar region (principal) | CPT/HCPCS: 97110; 97161 ==

== ENCOUNTER 2024-04-13 06:00 | Outpatient (RCR) | payer MEDICARE, OTHER, SELFPAY | END 2024-05-13 23:59 | disposition home or self-care (01) | LOC: SPT 06:00 | PROVIDERS: PCP Family Medicine; Visit Provider Family Medicine | DX: M54.16 Radiculopathy, lumbar region (principal) | CPT/HCPCS: 97110 ==

== ENCOUNTER 2024-05-14 06:00 | Outpatient (RCR) | payer MEDICARE, OTHER, SELFPAY | END 2024-06-13 23:59 | disposition home or self-care (01) | LOC: SPT 06:00 | PROVIDERS: PCP Family Medicine; Visit Provider Family Medicine | DX: M54.16 Radiculopathy, lumbar region (principal) | CPT/HCPCS: 97110 ==

== ENCOUNTER → 2024-06-04 14:15 | Outpatient (BNVA) | payer MEDICARE, OTHER, SELFPAY | DX: Z79.4 Long term (current) use of insulin (principal); E11.9 Type 2 diabetes mellitus without complications; E78.2 Mixed hyperlipidemia | CPT/HCPCS: 80053; 80061; 83036 ==

== ENCOUNTER 2024-06-14 06:05 | Outpatient (RCR) | payer MEDICARE, OTHER, SELFPAY | END 2024-07-13 23:59 | disposition home or self-care (01) | LOC: SPT 06:05 | PROVIDERS: Visit Provider Family Medicine | DX: M54.16 Radiculopathy, lumbar region (principal) | CPT/HCPCS: 97110 ==

== ENCOUNTER 2024-07-14 06:00 | Outpatient (RCR) | payer MEDICARE, OTHER, SELFPAY | END 2024-08-13 23:59 | disposition home or self-care (01) | LOC: SPT 06:00 | PROVIDERS: Visit Provider Family Medicine | DX: M54.16 Radiculopathy, lumbar region (principal) | CPT/HCPCS: 97110 ==

== ENCOUNTER 2024-09-01 16:26 | Outpatient (CLI) | payer MEDICARE, OTHER, SELFPAY ==
--- NOTE | 2024-09-01 16:29 | XR_ITS ---
WS: [id number] Exam: XR thoracic spine 3V* [id number] Date/Time of Exam: 09/01/2024 4:35 PM Reason For Exam: neck pain Mild biconcave compression deformity of T6 suggesting compression fracture. Age is indeterminate. No other sign of fracture. Osteopenia. Mild spondylosis. Mild degenerative disc change. Mild dextroscoli osis. Recommendations: MRI of the T-spine could be helpful if thought to be clinically warranted. XR/XR thoracic spine 3V* [id number] IMPRESSION: 1. Compression deformity of T6 with about 15% loss of vertebral height and no o bvious posterior displacement. Fracture age is difficult to determine. 2. Mild degenerative change and osteopenia. Mild dextroscoliosis.
--- NOTE | 2024-09-01 16:29 | XR_ITS ---
WS: [email or web address] Exam: XR cervical spine 3V* [id number] Date/Time of Exam: 09/01/2024 4:35 PM Reason For Exam: shoulder pain No fracture or dislocation. Spondylosis and disc degeneration from C 5 to C7. Facet arthropathy at al l levels. Straightening. Uncovertebral spurring at multiple levels. Paraspinal soft tissues are unrem arkable. XR/XR cervical spine 3V* [id number] IMPRESSION: 1. Moderately advanced degenerative changes most marked from C5-C7. No fracture or malalignment. Straightening.
--- NOTE | 2024-09-01 16:29 | XR_ITS ---
WS: [id number] Exam: XR shoulder RT min 2V* [id number] Date/Time of Exam: 09/01/2024 4:35 PM Reason For Exam: right shoulder pain No acute fracture. Mild degenerative change at the glenohumeral joint. Periarticular calcifications a long the inferior margin of the glenoid. XR/XR shoulder RT min 2V* [id number] IMPRESSION: 1. Mild degenerative changes. No fracture or other significant finding.
== END 2024-09-01 16:27 | disposition home or self-care (01) ==
LOC: LAB 16:26 → RAD 16:28
DX: S22.050A Wedge compression fracture of T5-T6 vertebra, initial encounter for closed fracture (principal); M85.80 Other specified disorders of bone density and structure, unspecified site; M75.31 Calcific tendinitis of right shoulder; M50.322 Other cervical disc degeneration at C5-C6 level; M50.323 Other cervical disc degeneration at C6-C7 level; X58.XXXA Exposure to other specified factors, initial encounter
CPT/HCPCS: 72040; 72072; 73030

== ENCOUNTER → 2024-09-08 14:15 | Outpatient (BNVA) | payer MEDICARE, OTHER, SELFPAY | DX: E11.9 Type 2 diabetes mellitus without complications (principal); Z79.4 Long term (current) use of insulin | CPT/HCPCS: 80053; 83036 ==

== ENCOUNTER 2024-09-21 06:00 | Outpatient (RCR) | payer MEDICARE, OTHER, SELFPAY | END 2024-10-13 23:59 | disposition home or self-care (01) | LOC: SPT 06:00 | PROVIDERS: Visit Provider Pediatrics | DX: M25.511 Pain in right shoulder (principal) | CPT/HCPCS: 97110; 97161 ==

== ENCOUNTER 2024-10-12 09:27 | Emergency (ER) | payer MEDICARE, OTHER, SELFPAY ==
--- NOTE | 2024-10-12 09:30 | XR_ITS ---
WS: [email or web address] Portable AP upright chest, 10/12/2024 Clinical Data: cp Comparison: None. Findings: No nodules, masses or effusions are seen. The heart is normal. The pulmonary vascularity is not increased. No pneumonia or pneumothorax is seen. There is a slight upper thoracic levoscoliosis with a compensatory lower and mid thoracic dextroscoliosis. The aortic arch shows mild tortuosity. XR/XR chest 1V portable [id number] Impression: Atherosclerosis.
--- NOTE | 2024-10-12 09:31 | ECG_ITS ---
[facility] Test Date: 2024-10-12 Pat Name: Ofelia Yi Department: Room: Gender: Female Scrub Nurse: : 1945 Requested By: Fito Houston Order Number: [id number] Rigoberto MD: Aaron Tinsley M.D. Measurements Intervals Art Rate: 61 P: 54 VT: 127 QRS: 236 QRSD: 130 T: 49 QT: 446 QTc: 452 Interpretive Statements SINUS RHYTHM RIGHT AXIS DEVIATION [QRS AXIS > 100] RIGHT BUNDLE BRANCH BLOCK [120+ ms QRS DURATION, UPRIGHT V1, 40+ ms S IN I/aVL/V4/V5/V6] Compared to ECG 05/17/2023 21:42:51 Right-axis deviation now present Left posterior fascicular block no longer present Electronically Signed On 10-12-2024 16:34:35 COAT JOINER LOCKSTITCH by Aaron Tinsley M.D. [email or web address]
[2024-10-12 09:35] VITALS: BP 144/82; PULSE 61; RESP 18; TEMP 36.6; O2SAT 99; BMI 21.2
--- NOTE | 2024-10-12 09:42 | ED_ITS ---
HPI - Chest Pain 2 General: Chief Complaint: Chest Pain Stated Complaint: chest pain (2hrs ago no pain now) Time Seen by Provider: 10/12/24 09:30 Source: patient Mode of arrival: ambulatory Limitations: no limitations History of Present Illness: 78-year-old female who states that she h as been having chest pain since this morning at 630. Patient states that the pain has crossed her chest she states it lasted roughly an hour and is since resolved. She denies any fever denies any shortness of breath denies any vomiting or diarrhea. Associated symptoms: Deny abdominal pain, dyspnea, fever(s), nausea or vomiting Related Data Home Medications Medication Instructions Recorded Confirmed lancets 28 gauge (FreeStyle 06/27/21 10/12/24 Lancets) latanoprost 0.005 % eye drops 1 drp ophthalmic (eye) BEDTIME 06/27/21 10/12/24 cholecalciferol (vitamin D3) 25 25 mcg PO QAM 09/13/22 10/12/24 mcg (1,000 unit) capsule (Vitamin D3) calcium carbonate (Calcium 600) 600 mg PO QAM 05/18/23 10/12/24 timolol maleate 0.5 % eye drops 1 drp ophthalmic (eye) QAM 05/18/23 10/12/24 turmeric 400 mg capsule 400 mg PO QAM 05/18/23 10/12/24 glucosamine sulf dipot 1 cap PO DAILY 09/29/23 10/12/24 chlr,msm,chond 550 mg-C 30 mg-lucy 1 mg capsule (Glucosamine Chondroitin) multivitamin 1 tab PO QAM 09/29/23 10/12/24 omega-3 fatty acids 1,000 mg 1,000 mg PO DAILY 09/29/23 10/12/24 capsule dapagliflozin propanediol 5 mg 5 mg PO QAM 10/12/24 10/12/24 tablet (Farxiga) fenofibrate 160 mg tablet 160 mg PO DAILY 10/12/24 10/12/24 gabapentin 100 mg capsule 100 mg PO TID 10/12/24 10/12/24 insulin degludec 100 unit/mL (3 27 unit SUBCUT QAM 10/12/24 10/12/24 mL) subcutaneous pen (Tresiba FlexTouch U-100 insulin) metoprolol tartrate 25 mg tablet 12.5 mg PO QPM 10/12/24 10/12/24 omeprazole 40 mg capsule,delayed 40 mg PO DAILY 10/12/24 10/12/24 release Previous Rx's Medication Instructions Recorded pen needle, diabetic 32 gauge x #100 ea 10/22/22 (TechLITE Pen Needle) blood sugar diagnostic (FreeStyle #300 ea 03/16/24 Lite Strips) diabetic shoes #1 ea 04/02/24 tramadol 50 mg tablet 50 mg PO Q8H PRN pain #90 tabs 04/29/24 meloxicam 7.5 mg tablet 7.5 mg PO DAILY #30 tabs 09/08/24 simvastatin 80 mg tablet 80 mg PO BEDTIME #90 tabs 09/08/24 Allergies Allergy/AdvReac Type Severity Reaction Status Date / Time Sulfa (Sulfonamide AdvReac Mild yeast Verified 09/08/24 13:28 Antibiotics) infection Review of Systems 2 Const: Denies: fever(s), chills, body aches or change in appetite ENMT: Denies: throat pain or dental pain Card: Reports: chest pain Resp: Denies: dyspnea GI: Denies: abdominal pain, nausea, vomiting or diarrhea Musc: Denies: neck pain or back pain Skin/Breast: Denies: rash Neuro: Denies: headache(s) PFSH ED 2 PFSH: Medical History Right shoulder pain Strain of left trapezius muscle H. pylori infection Diverticulosis large intestine w/o perforation or abscess w/bleeding Gastritis Fatigue Hypersomnolence Bilateral shoulder pain Encounter to establish care Hyperlipidemia Controlled type 2 diabetes mellitus, with long-term current use of insulin Surgical History Hx of colonoscopy 09/17/22 Social History Smoking and tobacco/nicotine status: never used tobacco/nicotine Second hand smoke exposure: No Alcohol intake: current Alcohol intake frequency: holidays/special occasions only Alcohol type: wine Substance/Drug Use: never Adopted: No Caregiver/support person: No Lives independently: Yes Household members: spouse and children Housing: House Marital status: Number of children: 3 Number of grandchildren: 4 service: No Current occupational status: retired Pets and animals: Yes Pets & animals: dog(s) and fish Current gender identity: Female Physical Exam 2 Const: COMMON NORMALS: no acute distress, patient oriented x3 and healthy appearing HENMT: COMMON NORMALS: normocephalic and atraumatic HEAD & SCALP: n ormocephalic and atraumatic Eye: COMMON NORMALS: conjunctivae normal CONJUNCTIVA: Yes conjunctivae normal Neck/C-Spine: COMMON NORMALS: full ROM and supple Chest: COMMONS NORMALS: normal inspection of the chest and normal palpation of entire chest wall Resp: COMMON NORMALS: normal respiratory effort, No retractions, No use of accessory muscles and clear to auscultation bilaterally AUSCULTATION: clear to auscultation bilaterally Cardio: COMMON NORMALS: regular rate, regular rhythm and No murmurs present (Cardio) RATE: regular rate RHYTHM: regular rhythm GI: COMMON NORMALS: Normal to inspection, nondistended, normoactive bowel sounds present, Soft to palpation, non-tender and no masses PALPATION: Yes Soft to palpation Extremity: COMMON NORMALS: normal to inspection and full ROM Neuro: COMMON NORMALS: patient oriented x3, moves all extremities and no focal motor deficits Psych: COMMON NORMALS: mental status grossly normal, Normal thought process present and cooperative THOUGHT PROCESS: Normal thought process present Skin: COMMON NORMALS: no rashes or lesions noted and no wounds GENERAL SKIN EXAM: no rashes or lesions noted Course 2 Vital Signs: Vital signs: Vital Signs Temperature 97.8 F 10/12/24 09:35 Pulse Rate 76 10/12/24 11:56 Respiratory Rate 18 10/12/24 09:35 Blood Pressure 139/86 10/12/24 11:56 Pulse Oximetry 95 10/12/24 11:56 Oxygen Delivery Me thod Room Air 10/12/24 11:56 MDM - Chest Pain Medical Decision Making Patient presents here with chest pain that since resolved she had no pain here initial repeat troponin was negative she has no signs of dissection or pulmonary embolism she stable for discharge she has to follow-up with her PCP return if worsening she understands agrees to plan. Medical Records I reviewed the patient's medical records. Lab Data I reviewed the patient's lab results. 10/12/24 10:09 10/12/24 10:09 Radiology Impressions Chest X-Ray 10/12/24 09:30 Impression: Atherosclerosis. Laboratory Results WBC 5.11 10^3/uL (3.29-11.43) 10/12/24 10:09 RBC 4.18 10^6/uL (3.85-5.65) 10/12/24 10:09 Hgb 12.70 g/dL (11.27-16.99) 10/12/24 10:09 Hct 41.0 % (36-47) 10/12/24 10:09 MCV 98.1 fl (85-98) H 10/12/24 10:09 MCH 30.4 pg (27-33) 10/12/24 10:09 MCHC 31.0 g/dL (30-55) 10/12/24 10:09 RDW 12.4 % (12.1-15.1) 10/12/24 10:09 Plt Count 258 10^3/cmm (157-399) 10/12/24 10:09 MPV 10.7 fL (7.4-10.4) H 10/12/24 10:09 Neut % (Auto) 57.4 % 10/12/24 10:09 Lymph % (Auto) 25.6 % 10/12/24 10:09 [place] % (Auto) 13.7 % 10/12/24 10:09 Eos % (Auto) 2.5 % 10/12/24 10:09 Baso % (Auto) 0.6 % 10/12/24 10:09 Neut # (Auto) 2.93 10^3/uL (1.8-7.7) 10/12/24 10:09 Lymph # (Auto) 1.3 10^3/uL (0.8-4.8) 10/12/24 10:09 [place] # (Auto) 0.7 10^3/uL (0.2-0.9) 10/12/24 10:09 Eos # (Auto) 0.1 10^3/uL (0.0-0.8) 10/12/24 10:09 Baso # (Auto) 0.0 10^3/uL (0.0-0.1) 10/12/24 10:09 Nucleated RBC % (auto) 0 % 10/12/24 10:09 Nucleated RBCs # 0.0 /100WBC 10/12/24 10:09 Sodium 133 mmol/L (136-145) L 10/12/24 10:09 Potassium 5.1 mmol/L (3.5-5.1) 10/12/24 10:09 Chloride 99 mmol/L (98-107) 10/12/24 10:09 Carbon Dioxide 23 mmol/L (22-29) 10/12/24 10:09 Anion Gap 16.1 (5-19) 10/12/24 10:09 BUN 26 mg/dL (8-23) H 10/12/24 10:09 Creatinine 0.9 mg/dL (0.5-0.9) 10/12/24 10:09 GFR Calculation Not Reportable 10/12/24 10:09 Glucose 359 mg/dL (65-115) H 10/12/24 10:09 Calculated Osmolality 295 mOsm/kg (285-295) 10/12/24 10:09 Calcium 8.9 mg/dL (8.5-10.5) 10/12/24 10:09 Total Bilirubin 0.3 mg/dL (0.15-1.2) 10/12/24 10:09 AST 22 U/L (0-32) 10/12/24 10:09 ALT 14 U/L (0-33) 10/12/24 10:09 Alkaline Phosphatase 47 U/L (35-105) 10/12/24 10:09 Troponin T Baseline 21 ng/L (0-10) H 10/12/24 10:09 Troponin T 120 Minute 17.73 ng/L (0-10) H 10/12/24 12:10 Delta Troponin T -3.27 ABS# (0-10) L 10/12/24 12:10 Total Protein 6.7 g/dL (6.6-8.7) 10/12/24 10:09 Albumin 3.9 g/dL (3.5-5.2) 10/12/24 10:09 Globulin 2.8 g/dL (1.3-4.6) 10/12/24 10:09 Lipase 93 U/L (13-60) H 10/12/24 10:09 All radiology interpretation(s) finalized by discharge EKG Data EKG 1: I personally reviewed and interpreted this EKG as follows: EKG interpretation date: 10/12/24 EKG interpretation time: 09:31 Interpretation: nsr hr [address] elevation qrs 130 qtc 450 Discharge Plan Discharge Patient Disposition: Home Clinical Impression: Chest pain Condition: Stable Prescriptions: No Action (DME) lancets [FreeStyle Lancets] 28 gauge misc See Rx Instructions .Route Rx Instructions: As directed, three times daily latanoprost 0.005 % drops 1 drp ophthalmic (eye) BEDTIME meloxicam 7.5 mg tablet 7.5 mg PO DAILY Qty: 30 2RF simvastatin 80 mg tablet 80 mg PO BEDTIME Qty: 90 1RF (DME) diabetic shoes See Rx Instructions .Route .MEDSUPPLY Qty: 1 0RF Rx Instructions: As directed (DME) pen needle, diabetic [TechLITE Pen Needle] 32 gauge x /32 needle See Rx Instructions .ROUTE .COMPLEX Qty: 100 0RF Dose Instruction: USE DIRECTED Rx Instructions: USE DIRECTED (DME) FreeStyle Lite Strips Strip See Rx Instructions .ROUTE .COMPLEX Qty: 300 0RF Dose Instruction: USE 1 STRIP TO CHECK GLUCOSE THREE TIMES DAILY Rx Instructions: USE 1 STRIP TO CHECK GLUCOSE THREE TIMES DAILY tramadol 50 mg tablet 50 mg PO Q8H PRN (Reason: pain) Qty: 90 1RF calcium carbonate [Calcium 600] 600 mg calcium (1,500 mg) Tablet 600 mg PO QAM timolol maleate 0.5 % drops 1 drp ophthalmic (eye) QAM turmeric 400 mg Capsule 400 mg PO QAM cholecalciferol (vitamin D3) [Vitamin D3] 25 mcg (1,000 unit) Capsule 25 mcg PO QAM multivitamin Tablet 1 tab PO QAM omega-3 fatty acids [Fish Oil Concentrate] 1,000 mg Capsule 1,000 mg PO DAILY Glucosamine Chondroitin 550-30-1 mg Capsule 1 cap PO DAILY dapagliflozin propanediol [Farxiga] 5 mg tablet 5 mg PO QAM gabapentin 100 mg capsule 100 mg PO TID metoprolol tartrate 25 mg tablet 12.5 mg PO QPM fenofibrate 160 mg tablet 160 mg PO DAILY insulin degludec [Tresiba FlexTouch U-100] 100 unit/mL (3 mL) insulin pen 27 unit SUBCUT QAM omeprazole 40 mg capsule,delayed release(DR/EC) 40 mg PO DAILY Discharge Orders: Discharge ED (Routine); Ordered 10/12/24 Ordered By: Fito Houston Referrals: Oneyda Savage MD [Primary Care Provider] - 1-3 days Discharge Diet: Advance as tolerated Discharge Activity: Resume usual activity Patient Instructions: Chest Pain (ED) Coding Level of Care Code ED Engineer Rf Deployment for Loren Mata
[2024-10-12 10:24] LABS: Basophils % 0.6 %; Eosinophils # 0.1 10^3/uL (0.0-0.8); Eosinophils % 2.5 %; Lymphocytes # 1.3 10^3/uL (0.8-4.8); Lymphocytes % 25.6 %; Mean Corpuscular Hemoglobin 30.4 pg (27-33); Mean Corpuscular Volume 98.1 fl (85-98); Mean Platelet Volume 10.7 fL (7.4-10.4); Monocytes # 0.7 10^3/uL (0.2-0.9); Monocytes % 13.7 %; Neutrophils # 2.93 10^3/uL (1.8-7.7); Neutrophils % 57.4 %; Nucleated Red Blood Cells % 0 %; Platelet Count 258 10^3/cmm (157-399); Red Blood Count 4.18 10^6/uL (3.85-5.65); Red Cell Distribution Width 12.4 % (12.1-15.1); White Blood Count 5.11 10^3/uL (3.29-11.43)
[2024-10-12 10:44] LABS: Alanine Aminotransferase 14 U/L (0-33); Albumin Level 3.9 g/dL (3.5-5.2); Alkaline Phosphatase 47 U/L (35-105); Anion Gap 16.1 (5-19); Aspartate Amino Transferase 22 U/L (0-32); Blood Urea Nitrogen 26 mg/dL (8-23); Calcium 8.9 mg/dL (8.5-10.5); Carbon Dioxide 23 mmol/L (22-29); Chloride 99 mmol/L (98-107); Creatinine Clr Calc Pharmacy 44.6721; Globulin 2.8 g/dL (1.3-4.6); Glucose 359 mg/dL (65-115); Lipase 93 U/L (13-60); Osmolality Calculated 295 mOsm/kg (285-295); Potassium 5.1 mmol/L (3.5-5.1); Sodium 133 mmol/L (136-145); Total Bilirubin 0.3 mg/dL (0.15-1.2); Total Protein 6.7 g/dL (6.6-8.7)
[2024-10-12 10:47] LABS: Troponin(5th) Baseline 21 ng/L (0-10)
--- NOTE | 2024-10-12 11:31 | ECG_ITS ---
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 Measurements Intervals [place] Rate: 60 P: 43 IN: 135 QRS: 252 QRSD: 121 T: 55 QT: 419 QTc: 420 Interpretive Statements SINUS RHYTHM RIGHT AXIS DEVIATION [QRS AXIS > 100] RIGHT BUNDLE BRANCH BLOCK [120+ ms QRS DURATION, UPRIGHT V1, 40+ ms S IN I/aVL/V4/V5/V6] SEPTAL MYOCARDIAL INFARCTION , OF INDETERMINATE AGE [40+ ms Q WAVE IN V1/V2] Compared to ECG 10/12/2024 09:31:40 Myocardial infarct finding now present Electronically Signed On 10-12-2024 16:51:09 BOND RUNNER by Aaron Tinsley M.D. [id number]
[2024-10-12 11:56] VITALS: BP 139/86; PULSE 76; O2SAT 95
[2024-10-12 12:44] LABS: Troponin 5 2HR 17.73 ng/L (0-10)
[2024-10-12 12:45] LABS: Troponin 5 2HR Delta -3.27 ABS# (0-10)
[2024-10-12 13:03] VITALS: BP 133/70; PULSE 62; O2SAT 97
== END 2024-10-12 13:27 | disposition home or self-care (01) ==
PROVIDERS: Emergency Provider Emergency Medicine; PCP Family Medicine
DX: R07.9 Chest pain, unspecified (principal); E11.9 Type 2 diabetes mellitus without complications; E78.5 Hyperlipidemia, unspecified
CPT/HCPCS: 36415; 71045; 80053; 83690; 84484; 85025; 93005; 99285

== ENCOUNTER 2024-10-14 06:00 | Outpatient (RCR) | payer MEDICARE, OTHER, SELFPAY | END 2024-10-16 23:59 | disposition home or self-care (01) | LOC: SPT 06:00 | PROVIDERS: PCP Family Medicine; Visit Provider Pediatrics | DX: M25.511 Pain in right shoulder (principal) | CPT/HCPCS: 97110 ==

== ENCOUNTER 2025-03-29 15:25 | Outpatient (CLI) | payer MEDICARE, OTHER, SELFPAY | END 2025-03-29 15:26 | disposition home or self-care (01) | LOC: LAB 15:28 | PROVIDERS: PCP Family Medicine; Visit Provider Family Medicine | DX: E11.9 Type 2 diabetes mellitus without complications (principal); Z79.4 Long term (current) use of insulin | CPT/HCPCS: 80053; 83036 ==

== ENCOUNTER → 2025-04-08 14:50 | Outpatient (BNVA) | payer MEDICARE, OTHER, SELFPAY | PROVIDERS: PCP Family Medicine; Referring Provider Family Medicine; Visit Provider Nurse Practitioner Family | DX: G89.29 Other chronic pain (principal); M54.42 Lumbago with sciatica, left side | CPT/HCPCS: 99214 ==

== ENCOUNTER 2025-04-13 05:00 | Outpatient (RCR) | payer MEDICARE, OTHER, SELFPAY | END 2025-05-13 23:59 | disposition home or self-care (01) | LOC: SPT 05:00 | PROVIDERS: PCP Family Medicine; Visit Provider Nurse Practitioner Family | DX: M54.16 Radiculopathy, lumbar region (principal) | CPT/HCPCS: 97161 ==

== ENCOUNTER 2025-04-19 16:04 | Emergency (ER) | payer MEDICARE, OTHER, SELFPAY ==
--- OUTSIDE RECORDS SUMMARY | 2025-04-19 16:08 | XMS_ITS | Clinical Summary ---
Author Organization [facility] Administrative Offices Address [address] [place] [id number] Care Team Providers Care Lead Generation Specialist Name Role Phone Unavailable Primary Care Provider Unavailabl e Active Problems No known active problems Social History Tobacco Use Types Packs/Day Years Used Date Smoking Tobacco: Never Assessed Comments Unknown Sex and Gender Information Value Date Recorded Sex Assigned at Not on file Legal Sex Female 2:13 PM CDT Gender Identity Not on file Sexual Orientation Not on file Plan of Treatment Health Maintenance Due Date Last Done Comments DIABETES MICROALBUMIN ANNUAL SCREEN 12/16/1965 LDL CHOLESTEROL ANNUAL 12/16/1965 ZOSTER VACCINE (1 of 2) 12/16/1997 OSTEOPOROSIS SCREENING 11/26/2019 11/26/2014 DIABETES ANNUAL RETINAL EXAM 04/28/2021 04/28/2020 DIABETES ANNUAL FOOT EXAM 11/07/2021 11/07/2020 DIABETES HBA1C Q 6 MONTHS 11/17/2021 05/17/2021 RSV VACCINE (60+ or ) (1 - 1-dose 75+ series) 12/16/2022 COVID-19 Vaccine (3 - 2023-2 5 season) 2024 12/23/2020, 11/25/2020 INFLUENZA VACCINE (#1) 2025 , 08/03/2019, 07/22/2018, Additional history exists DTAP/TDAP/TD VACCINES (3 - T d or Tdap) 08/08/2030 08/08/2020, 08/03/2010 PNEUMOCOCCAL VACCINE 50+ YEARS Completed 07/08/2017 , 05/19/2015 Insurance MEDICARE PART A AND B [facility]
--- NOTE | 2025-04-19 16:12 | ECG_ITS ---
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 Measurements Intervals [place] Rate: 58 P: 38 MT: 126 QRS: 227 QRSD: 123 T: 49 QT: 444 QTc: 438 Interpretive Statements SINUS BRADYCARDIA RIGHT AXIS DEVIATION [QRS AXIS > 100] RIGHT BUNDLE BRANCH BLOCK [120+ ms QRS DURATION, UPRIGHT V1, 40+ ms S IN I/aVL/V4/V5/V6] Compared to ECG 10/12/2024 11:38:27 Sinus rhythm no longer present Myocardial infarct finding no longer present Electronically Signed On 04-20-2025 08:18:32 CDT by Aaron Tinsley M.D. [id number] [id number]
[2025-04-19 16:24] VITALS: BP 146/80; PULSE 60; TEMP 36.7; O2SAT 98
[2025-04-19 18:18] LABS: Hematocrit 40.6 % (36-47); Hemoglobin 13.00 g/dL (11.27-16.99); Mean Corpuscular HGB Conc 32.0 g/dL (30-55); Mean Corpuscular Hemoglobin 30.2 pg (27-33); Mean Corpuscular Volume 94.2 fl (85-98); Nucleated Red Blood Cells % 0 %; Platelet Count 278 10^3/cmm (157-399); Red Blood Count 4.31 10^6/uL (3.85-5.65); White Blood Count 7.47 10^3/uL (3.29-11.43)
[2025-04-19 18:28] VITALS: BP 149/82; PULSE 62; RESP 14; O2SAT 97
[2025-04-19 18:32] LABS: Alanine Aminotransferase 17 U/L (0-33); Albumin Level 4.3 g/dL (3.5-5.2); Alkaline Phosphatase 43 U/L (35-105); Anion Gap 17.9 (5-19); Aspartate Amino Transferase 26 U/L (0-32); Blood Urea Nitrogen 28 mg/dL (8-23); Calcium 9.2 mg/dL (8.5-10.5); Carbon Dioxide 22 mmol/L (22-29); Chloride 100 mmol/L (98-107); Creatinine Clr Calc Pharmacy 43.8241; Globulin 3.1 g/dL (1.3-4.6); Glucose 224 mg/dL (65-115); Osmolality Calculated 292 mOsm/kg (285-295); Potassium 4.9 mmol/L (3.5-5.1); Sodium 135 mmol/L (136-145); Total Protein 7.4 g/dL (6.6-8.7)
--- NOTE | 2025-04-19 18:58 | CTR_ITS ---
PROCEDURE INFORMATION: Exam: CT Head Without Contrast Exam date and time: 04/19/2025 7:31 PM Age: 79 years old Clinical indication: Pain; Headache; Migraine; Aura effect not specified; Additional info: Headache, sudden onset TECHNIQUE: Imaging protocol: Computed tomography of the head without contrast. Radiation optimization: All CT scans at this facility use at least one of these dose optimization techniques: automated exposure control; mA and/or kV adjustment per patient size (includes targeted exams where dose is matched to clinical indication); or iterative reconstruction. COMPARISON: MR head wo con* [id number] 05/18/2023 1:17 PM RADIATION DOSE METRICS: Total DLP (mGy-cm): 945.58 FINDINGS: Brain: No acute infarction, hemorrhage, mass, or extra-axial fluid collection is identified. No midline shift. Cerebral ventricles: No hydrocephalus. Paranasal sinuses: Paranasal sinuses are grossly clear. Mastoid air cells: Mastoid air cells are grossly clear. Bones: Calvarium appears intact. Soft tissues: Unremarkable. CT/CT head wo con* [id number] IMPRESSION: No acute intracranial abnormality.
--- NOTE | 2025-04-19 19:00 | W.ED.HA ---
HPI - Headache General: Chief Complaint: Headache Stated Complaint: low HR sent from dr. Unger Time Seen by Provider: 04/19/25 18:20 Source: patient Mode of arrival: ambulatory Limitations: no limitations History of Present Illness: 79yo female presents with significant other for evaluation of a headache with nausea and 1 episode of vomiting that started this morning when she was sitting on a stool cooking breakfast. Patient reports that she was fine when she woke up. States she still has the headache with a small amount of dizziness and is feeling nauseated, but has had no further vomiting. She did go to the clinic, but the doctor there was concerned about her heart rate as it was 58. Patient denies fall, trauma, known injury, vision changes, any other concern at this time. Associated symptoms: Reports nausea and vomiting (resolved); Deny chest pain or fever(s) Related Data Home Medications ?Medication ?Instructions ?Recorded ?Confirmed latanoprost 0.005 % eye drops 1 drp ophthalmic (eye) BEDTIME 06/27/21 04/19/25 cholecalciferol (vitamin D3) 25 25 mcg PO QAM 09/13/22 04/19/25 mcg (1,000 unit) capsule (Vitamin D3) calcium carbonate (Calcium 600) 600 mg PO QAM 05/18/23 04/19/25 timolol maleate 0.5 % eye drops 1 drp ophthalmic (eye) QAM 05/18/23 04/19/25 turmeric 400 mg capsule 400 mg PO QAM 05/18/23 04/19/25 multivitamin 1 tab PO QAM 09/29/23 04/19/25 omega-3 fatty acids 1,000 mg 1,000 mg PO DAILY 09/29/23 04/19/25 capsule omeprazole 40 mg capsule,delayed 40 mg PO DAILY 10/12/24 04/19/25 release cetirizine 10 mg capsule (Zyrtec) 10 mg PO DAILY PRN 01/18/25 04/19/25 glucosamine sulf dipot 1 cap PO DAILY PRN 01/18/25 04/19/25 chlr,msm,chond 550 mg-C 30 mg-lucy 1 mg capsule (Glucosamine Chondroitin) Previous Rx's ?Medication ?Instructions ?Recorded pen needle, diabetic 32 gauge x #100 ea 10/22/22 (TechLITE Pen Needle) diabetic shoes #1 ea 04/02/24 tramadol 50 mg tablet 50 mg PO Q8H PRN pain #90 tabs 04/29/24 insulin glargine-yfgn 100 unit/mL 28 unit (0.28 mL) SUBCUT DAILY #15 11/12/24 (3 mL) subcutaneous pen (Semglee mL (insulin glargine-yfgn) Pen) blood sugar diagnostic (FreeStyle #300 ea 12/21/24 Lite Strips) lancets 28 gauge (FreeStyle #100 ea 12/21/24 Lancets) simvastatin 80 mg tablet 80 mg PO BEDTIME #90 tabs 12/21/24 dapagliflozin propanediol 5 mg 5 mg PO QAM #90 tabs 12/25/24 tablet (Farxiga) lisinopril 5 mg tablet 5 mg PO DAILY #90 tabs 02/15/25 gabapentin 100 mg capsule 100 mg PO TID #90 caps 02/18/25 metoprolol tartrate 25 mg tablet 12.5 mg (1/2 x 25 mg) PO BID #30 02/18/25 tabs fenofibrate 160 mg tablet 160 mg PO DAILY #90 tabs 03/09/25 meloxicam 7.5 mg tablet 7.5 mg PO DAILY #30 tabs 03/22/25 baclofen 5 mg tablet 5 mg PO BID PRN muscle spasm #60 04/08/25 tabs Allergies Allergy/AdvReac Type Severity Reaction Status Date / Time Sulfa (Sulfonamide AdvReac Mild yeast Verified 04/19/25 16:35 Antibiotics) infection Review of Systems Const: Denies: fever(s), chills or body aches Eyes: Denies: change in vision Card: Denies: chest pain Resp: Denies: dyspnea GI: Reports: nausea and vomiting (resolved); Denies: abdominal pain Neuro: Reports: headache(s) and dizziness (decreased from onset); Denies: numbness in extremities, lack of coordination or difficulty walking PFSH ED PFSH: Medical History Enrolled in chronic care management Essential hypertension Right shoulder pain H. pylori infection Diverticulosis large intestine w/o perforation or abscess w/bleeding Gastritis Fatigue Hypersomnolence Hyperlipidemia Controlled type 2 diabetes mellitus, with long-term current use of insulin Surgical History Hx of colonoscopy 09/17/22 Family History Mother Dementia Social History Smoking and tobacco/nicotine status: never used tobacco/nicotine Second hand smoke exposure: No Alcohol intake: current Alcohol intake frequency: holidays/special occasions only Alcohol type: wine Substance/Drug Use: never Adopted: No Caregiver/support person: No Lives independently: Yes Household members: spouse and children Housing: House Marital status: Number of children: 3 Number of grandchildren: 4 Highest education level completed: Associate Degree: Occupational, Technical, Vocational Program 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 She is sitting upright in the recliner in no acute distress. She is able to give history with no difficulty. She is interactive with exam appropriately. Significant other is at bedside HENMT: COMMON NORMALS: normocephalic, atraumatic and TM's normal bilaterally HEAD & SCALP: normocephalic and atraumatic TYMPANIC MEMBRANE: TM's normal bilaterally Eye: COMMON NORMALS: Equal, round and reactive pupils present, EOMs intact bilaterally and conjunctivae normal CONJUNCTIVA: Yes conjunctivae normal PUPIL: Yes Equal, round and reactive pupils present Neck/C-Spine: COMMON NORMALS: full ROM Chest: CHEST: Yes Symmetrical chest wall rise Resp: COMMON NORMALS: normal respiratory effort and clear to auscultation bilaterally EFFORT & INSPECTION: Yes able to speak in complete sentences AUSCULTATION: clear to auscultation bilaterally Cardio: COMMON NORMALS: regular rate and regular rhythm RATE: regular rate RHYTHM: regular rhythm Extremity: COMMON NORMALS: full ROM Neuro: OSWALD COMA SCALE: document GCS findings [place] coma scale eye opening: Spontaneous [place] coma scale verbal response: Orientated [place] coma scale motor response: Obey commands [place] coma scale total score: 15 COMMON NORMALS: patient oriented x3 SENSORIUM/ORIENTATION: Yes alert Psych: COMMON NORMALS: cooperative Course Vital Signs: Vital signs: Vital Signs Temperature 98.1 F 04/19/25 16:24 Pulse Rate 58 L 04/19/25 19:56 Respiratory Rate 16 04/19/25 19:56 Blood Pressure 119/72 04/19/25 19:56 Pulse Oximetry 94 04/19/25 19:56 Oxygen Delivery Me thod Room Air 04/19/25 19:56 MDM - Headache Medical Decision Making 79yo female here with significant other for evaluation of a headache that started suddenly this morning while she was cooking breakfast. Patient did have dizziness as well as nausea and 1 episode of vomiting. She reports that she still has a headache and is nauseated. She did go to the clinic, but they sent her to the emergency department as her heart rate was 58. Patient denies fall, trauma, known injury, vision changes. Patient is nontoxic in appearance. Vital signs are stable. Labs obtained while awaiting replacement. No leukocytosis, white blood cell count is 7.47. No indication of anemia, hemoglobin is 13.0. No significant electrolyte abnormalities noted. BUN is elevated at 28, chronic for patient. Creatinine is 0.9. Glucose is elevated at 224. Will proceed with CT scan of the head as well as UA. CT of the head with no acute intracranial abnormality noted. UA does show 2+ glucose, 3+ leukocyte esterase, 51-100 white blood cells, negative for nitrates and negative for bacteria. Discussed all findings with patient. Will proceed with single dose of ketorolac and meclizine while in the emergency department. Patient did have improvement in her nausea after ondansetron. Encouraged patient to increase her fluid intake and continue to monitor symptoms. Vies follow-up with primary care, call in the next few days with an update of symptoms and to discuss a recheck. Return precautions provided. Patient and family state understanding and have no further questions or concerns at this time. Medical Records I reviewed the patient's medical records. Lab Data I reviewed the patient's lab results. 04/19/25 18:00 04/19/25 18:[address] 04/19/25 18:58 IMPRESSION: No acute intracranial abnormality. Laboratory Results WBC 7.47 10^3/uL (3.29-11.43) 04/19/25 18:00 RBC 4.31 10^6/uL (3.85-5.65) 04/19/25 18:00 Hgb 13.00 g/dL (11.27-16.99) 04/19/25 18:00 Hct 40.6 % (36-47) 04/19/25 18:00 MCV 94.2 fl (85-98) 04/19/25 18:00 MCH 30.2 pg (27-33) 04/19/25 18:00 MCHC 32.0 g/dL (30-55) 04/19/25 18:00 RDW 12.3 % (12.1-15.1) 04/19/25 18:00 Plt Count 278 10^3/cmm (157-399) 04/19/25 18:00 MPV 10.8 fL (7.4-10.4) H 04/19/25 18:00 Neut % (Auto) 73.1 % 04/19/25 18:00 Lymph % (Auto) 17.4 % 04/19/25 18:00 [place] % (Auto) 7.9 % 04/19/25 18:00 Eos % (Auto) 0.8 % 04/19/25 18:00 Baso % (Auto) 0.5 % 04/19/25 18:00 Neut # (Auto) 5.46 10^3/uL (1.8-7.7) 04/19/25 18:00 Lymph # (Auto) 1.3 10^3/uL (0.8-4.8) 04/19/25 18:00 [place] # (Auto) 0.6 10^3/uL (0.2-0.9) 04/19/25 18:00 Eos # (Auto) 0.1 10^3/uL (0.0-0.8) 04/19/25 18:00 Baso # (Auto) 0.0 10^3/uL (0.0-0.1) 04/19/25 18:00 Nucleated RBC % (auto) 0 % 04/19/25 18:00 Nucleated RBCs # 0.0 /100WBC 04/19/25 18:00 Sodium 135 mmol/L (136-145) L 04/19/25 18:00 Potassium 4.9 mmol/L (3.5-5.1) 04/19/25 18:00 Chloride 100 mmol/L (98-107) 04/19/25 18:00 Carbon Dioxide 22 mmol/L (22-29) 04/19/25 18:00 Anion Gap 17.9 (5-19) 04/19/25 18:00 BUN 28 mg/dL (8-23) H 04/19/25 18:00 Creatinine 0.9 mg/dL (0.5-0.9) 04/19/25 18:00 GFR Calculation Not Reportable 04/19/25 18:00 Glucose 224 mg/dL (65-115) H 04/19/25 18:00 Calculated Osmolality 292 mOsm/kg (285-295) 04/19/25 18:00 Calcium 9.2 mg/dL (8.5-10.5) 04/19/25 18:00 Total Bilirubin 0.4 mg/dL (0.15-1.2) 04/19/25 18:00 AST 26 U/L (0-32) 04/19/25 18:00 ALT 17 U/L (0-33) 04/19/25 18:00 Alkaline Phosphatase 43 U/L (35-105) 04/19/25 18:00 Total Protein 7.4 g/dL (6.6-8.7) 04/19/25 18:00 Albumin 4.3 g/dL (3.5-5.2) 04/19/25 18:00 Globulin 3.1 g/dL (1.3-4.6) 04/19/25 18:00 Urine Color Yellow (Yellow) 04/19/25 18:20 Urine Appearance Clear (CLEAR) 04/19/25 18:20 Urine pH 6.0 (5-7) 04/19/25 18:20 Ur Specific [place] 1.013 (1.005-1.030) 04/19/25 18:20 Urine Protein Negative (Negative) 04/19/25 18:20 Urine Glucose (UA) 2+ (Normal) H 04/19/25 18:20 Urine Ketones Negative (Negative) 04/19/25 18:20 Urine Blood Negative (Negative) 04/19/25 18:20 Urine Nitrate Negative (Negative) 04/19/25 18:20 Urine Bilirubin Negative (Negative) 04/19/25 18:20 Urine Urobilinogen 0.2 mg/dL (Negative) 04/19/25 18:20 Ur Leukocyte Esterase 3+ (Negative) A 04/19/25 18:20 Urine RBC 0-2 /hpf (0-2) 04/19/25 18:20 Urine WBC 51-100 /hpf (0-5) H 04/19/25 18:20 Ur Squamous Epith Cells 0-5 /hpf (0-5) 04/19/25 18:20 Amorphous Sediment Not Reportable 04/19/25 18:20 Urine Bacteria None seen /hpf (NONE) 04/19/25 18:20 Hyaline Casts 0-4 /lpf H 04/19/25 18:20 All radiology interpretation(s) finalized by discharge Discharge Plan Discharge Patient Disposition: Home Clinical Impression: Headache Qualifiers: Headache type: unspecified Headache chronicity pattern: acute headache Intractability: not intractable Qualified Code(s): R51.9 - Headache, unspecified Condition: Stable Prescriptions: No Action latanoprost 0.005 % drops 1 drp ophthalmic (eye) BEDTIME simvastatin 80 mg tablet 80 mg PO BEDTIME Qty: 90 1RF (DME) lancets [FreeStyle Lancets] 28 gauge misc See Rx Instructions .Route Qty: 100 1RF Rx Instructions: As directed, three times daily (DME) FreeStyle Lite Strips Strip See Rx Instructions .ROUTE .COMPLEX Qty: 300 1RF Dose Instruction: USE 1 STRIP TO CHECK GLUCOSE THREE TIMES DAILY Rx Instructions: USE 1 STRIP TO CHECK GLUCOSE THREE TIMES DAILY Zyrtec 10 mg capsule 10 mg PO DAILY PRN metoprolol tartrate 25 mg tablet 12.5 mg PO BID Qty: 30 1RF gabapentin 100 mg capsule 100 mg PO TID Qty: 90 3RF (DME) diabetic shoes See Rx Instructions .Route .MEDSUPPLY Qty: 1 0RF Rx Instructions: As directed insulin glargine-yfgn [Semglee(insulin glarg-yfgn)Pen] 100 unit/mL (3 mL) insulin pen 28 unit SUBCUT DAILY Qty: 15 0RF Rx Instructions: changed from [place] baclofen 5 mg tablet 5 mg PO BID PRN (Reason: muscle spasm) Qty: 60 0RF (DME) pen needle, diabetic [TechLITE Pen Needle] 32 gauge x 5/32 needle See Rx Instructions .ROUTE .COMPLEX Qty: 100 0RF Dose Instruction: USE DIRECTED Rx Instructions: USE DIRECTED tramadol 50 mg tablet 50 mg PO Q8H PRN (Reason: pain) Qty: 90 1RF dapagliflozin propanediol [Farxiga] 5 mg tablet 5 mg PO QAM Qty: 90 0RF lisinopril 5 mg tablet 5 mg PO DAILY Qty: 90 1RF fenofibrate 160 mg tablet 160 mg PO DAILY Qty: 90 0RF meloxicam 7.5 mg tablet 7.5 mg PO DAILY Qty: 30 2RF calcium carbonate [Calcium 600] 600 mg calcium (1,500 mg) Tablet 600 mg PO QAM timolol maleate 0.5 % drops 1 drp ophthalmic (eye) QAM turmeric 400 mg Capsule 400 mg PO QAM cholecalciferol (vitamin D3) [Vitamin D3] 25 mcg (1,000 unit) Capsule 25 mcg PO QAM multivitamin Tablet 1 tab PO QAM omega-3 fatty acids [Fish Oil Concentrate] 1,000 mg Capsule 1,000 mg PO DAILY Glucosamine Chondroitin 550-30-1 mg capsule 1 cap PO DAILY PRN omeprazole 40 mg capsule,delayed release(DR/EC) 40 mg PO DAILY Discharge Orders: Discharge ED (Routine); Ordered 04/19/25 Ordered By: Jaime Light Referrals: Rena Vu DO [Primary Care Provider, Family Practice] Discharge Diet: Usual diet Discharge Activity: Increase activity as tolerated Patient Instructions: Acute Headache (ED), Pain Management, Patient Portal & Toby Instructions Activity Restrictions/Additional Instructions: No acute concerning abnormalities were noted on your labs today CT scan with no acute abnormalities We did proceed with ketorolac and meclizine in addition to the previously given ondansetron to help your headache and nausea Please increase your fluid intake and continue to monitor symptoms Follow-up with primary care, call in the next few days with an update of symptoms and to discuss a recheck. Return to the emergency department if any rapid worsening symptoms and as needed Print Language: Surinamese Coding Level of Care Code ED Sea Fo[employer] Kiss Maker for Loren Mata
[2025-04-19] MEDS: ondansetron hcl ODT 4 mg Tab PO (19:15)
[2025-04-19 19:32] LABS: Glucose Urine UA 2+ (Normal); Nitrate Urine Negative (Negative); Specific Gravity, Urine 1.013 (1.005-1.030)
[2025-04-19 19:37] LABS: Add Urine Microscopic? YES
[2025-04-19 19:56] VITALS: BP 119/72; PULSE 58; RESP 16; O2SAT 94
[2025-04-19 20:57] VITALS: BP 121/79; PULSE 59; O2SAT 94
== END 2025-04-19 20:59 | disposition home or self-care (01) ==
PROVIDERS: Emergency Medicine; Emergency Provider Nurse Practitioner; PCP Family Medicine
DX: R51.9 Headache, unspecified (principal); Z79.4 Long term (current) use of insulin; E78.5 Hyperlipidemia, unspecified; E11.9 Type 2 diabetes mellitus without complications
CPT/HCPCS: 36415; 70450; 80053; 81001; 85025; 87086; 93005; 99284; J8597; J9999; Q0162

== ENCOUNTER → 2025-05-07 10:20 | Outpatient (BNVA) | payer MEDICARE, OTHER, SELFPAY | PROVIDERS: PCP Family Medicine; Visit Provider Nurse Practitioner Family | DX: M54.2 Cervicalgia (principal); G89.29 Other chronic pain; M54.42 Lumbago with sciatica, left side | CPT/HCPCS: 72040; 99214 ==

== ENCOUNTER 2025-05-14 05:00 | Outpatient (RCR) | payer MEDICARE, OTHER, SELFPAY | END 2025-06-13 23:59 | disposition home or self-care (01) | LOC: SPT 05:00 | PROVIDERS: PCP Family Medicine; Visit Provider Nurse Practitioner Family | DX: M54.16 Radiculopathy, lumbar region (principal) | CPT/HCPCS: 97110; G0283 ==

== ENCOUNTER → 2025-06-10 13:56 | Outpatient (BNVA) | payer MEDICARE, OTHER, SELFPAY | PROVIDERS: PCP Family Medicine; Visit Provider Nurse Practitioner Family | DX: M54.2 Cervicalgia (principal); G89.29 Other chronic pain; M54.42 Lumbago with sciatica, left side | CPT/HCPCS: 99214 ==

== ENCOUNTER 2025-06-14 05:00 | Outpatient (RCR) | payer MEDICARE, OTHER, SELFPAY | END 2025-07-13 23:59 | disposition home or self-care (01) | LOC: SPT 05:00 | PROVIDERS: PCP Family Medicine; Visit Provider Nurse Practitioner Family | DX: M54.16 Radiculopathy, lumbar region (principal) | CPT/HCPCS: 97032; 97110 ==

== ENCOUNTER → 2025-06-28 08:46 | Outpatient (BNVA) | payer MEDICARE, OTHER, SELFPAY | PROVIDERS: PCP Family Medicine; Visit Provider Family Medicine | DX: E11.9 Type 2 diabetes mellitus without complications (principal); Z79.4 Long term (current) use of insulin | CPT/HCPCS: 80053; 80061; 82043; 83036 ==

== ENCOUNTER 2025-07-14 05:00 | Outpatient (RCR) | payer MEDICARE, OTHER, SELFPAY | END 2025-08-13 23:59 | disposition home or self-care (01) | LOC: SPT 05:00 | PROVIDERS: PCP Family Medicine; Visit Provider Nurse Practitioner Family | DX: M54.16 Radiculopathy, lumbar region (principal); M54.59 Other low back pain; M25.511 Pain in right shoulder; M25.512 Pain in left shoulder; M54.2 Cervicalgia | CPT/HCPCS: 97110 ==

== ENCOUNTER 2025-08-14 06:30 | Outpatient (RCR) | payer MEDICARE, OTHER, SELFPAY | END 2025-08-24 08:50 | disposition home or self-care (01) | LOC: SPT 06:30 | PROVIDERS: PCP Family Medicine; Visit Provider Nurse Practitioner Family | DX: M54.16 Radiculopathy, lumbar region (principal) | CPT/HCPCS: 97110 ==

== ENCOUNTER → 2025-09-15 09:18 | Outpatient (BNVA) | payer MEDICARE, OTHER, SELFPAY | PROVIDERS: PCP Family Medicine; Visit Provider Nurse Practitioner Family | DX: M79.18 Myalgia, other site (principal); M54.2 Cervicalgia; G89.29 Other chronic pain; M54.42 Lumbago with sciatica, left side | CPT/HCPCS: 20553; 99214; J1010; J3490 ==

== ENCOUNTER → 2025-09-29 08:46 | Outpatient (BNVA) | payer MEDICARE, OTHER, SELFPAY | PROVIDERS: PCP Family Medicine; Visit Provider Nurse Practitioner Family | DX: M54.42 Lumbago with sciatica, left side (principal); M54.2 Cervicalgia; G89.29 Other chronic pain | CPT/HCPCS: 99214 ==